=== PATIENT | female | born 1960 | race Caucasian/White ===

== ENCOUNTER 2022-06-05 08:23 | Day surgery (SDC) | payer OTHER, SELFPAY ==
[2022-06-01 15:13] VITALS: BMI 29.0
--- NOTE | 2022-06-04 11:49 | HO.ANESPROP2 ---
Documented by User: Keri Vega NP 06/04/22 11:49 HPI - Anesthesia Eval Consult details Narrative: 62yo F for Colonoscopy [facility] Past Medical History Medical History Anxiety Elevated cholesterol HTN (hypertension) Nephrolithiasis Surgical History Surgical History H/O colonoscopy Hx of appendectomy Hx of cholecystectomy Hx of nasal septoplasty Social History Social History Patient Tobacco Use Status: Former Tobacco user Are you DNR?: No Advance Directives: No Advance Directives Information Provided: Yes Nutrition Risks: No Nutritional Risk Meds Allergies Allergy/AdvReac Type Severity Reaction Status Date / Time metoprolol Allergy Mild Diarrhea Verified 06/05/22 08:40 shellfish derived Allergy Unknown Unknown Verified 06/05/22 08:40 tree nut Allergy Unknown Unknown Verified 06/05/22 08:40 Home Medications Medication Instructions Recorded Confirmed Last Taken Type hydrochlorothiazide 25 mg tablet 25 mg PO DAILY 06/01/22 06/01/22 Unknown History loratadine 10 mg tablet (Claritin) 10 mg PO DAILY 06/01/22 06/01/22 Unknown History lorazepam 0.5 mg tablet 0.5 mg PO BEDTIME PRN Anxiety 06/01/22 06/01/22 Unknown History lisinopril 10 mg tablet 1 tab PO DAILY 06/05/22 06/05/22 06/05/22 History Exam Exam Date and Time: June 04, 2022 1149 Height,Weight and Vital Signs: Height 5 ft 4 in Weight 76.657 kg Assessment and Plan Assessment Anesthesia Assessment: Chart Reviewed Documented by User: Walter Dolan MD 06/14/22 21:20 HPI - Anesthesia Eval Consult details Narrative: 62yo F for Colonoscopy had cardiac workup done for bundle branch block , unremarkable as per patient , asymptomatic , followed up with cardiology PRN . [facility] Past Medical History Medical History Anxiety Elevated cholesterol HTN (hypertension) Nephrolithiasis Functional capacity: independent ambulation Family History Family history of problems with anesthesia: No Surgical History Surgical History H/O colonoscopy Hx of appendectomy Hx of cholecystectomy Hx of nasal septoplasty History of Problems with Anesthesia: No Social History Social History Patient Tobacco Use Status: Former Tobacco user Are you DNR?: No Advance Directives: No Advance Directives Information Provided: Yes Nutrition Risks: No Nutritional Risk Meds Allergies Allergy/AdvReac Type Severity Reaction Status Date / Time metoprolol Allergy Mild Diarrhea Verified 06/05/22 08:40 shellfish derived Allergy Unknown Unknown Verified 06/05/22 08:40 tree nut Allergy Unknown Unknown Verified 06/05/22 08:40 Home Medications Medication Instructions Recorded Confirmed Last Taken Type hydrochlorothiazide 25 mg tablet 25 mg PO DAILY 06/01/22 06/01/22 Unknown History loratadine 10 mg tablet (Claritin) 10 mg PO DAILY 06/01/22 06/01/22 Unknown History lorazepam 0.5 mg tablet 0.5 mg PO BEDTIME PRN Anxiety 06/01/22 06/01/22 Unknown History lisinopril 10 mg tablet 1 tab PO DAILY 06/05/22 06/05/22 06/05/22 History Exam Airway Mallampati Class: III TM Dist: >3cm Neck ROM: Full Loose/Missing/Broken Teeth: Yes (Fillings ) Heart: S1,S2 Lungs: b/l breath sounds Assessment and Plan Assessment Anesthesia Assessment: Anesthesia Plan Discussed Final Anesthetic Review Family History of Problems with Anesthesia: No History of Problems with Anesthesia: No NPO: Yes ASA Class: II Final Preanesthetic Review: Meds/Allgs Chart Reviewed, Consent Obtained/Reviewed and Anes Risks/Benef Reviewed Patient Risk: Intermediate Procedure Risk: Intermediate Anesthetic Plan Anesthetic Plan: MAC: Disposition: Standard PACU
[2022-06-05] MEDS: Lactated Ringers 1,000 ML 100 ML IVCONT (08:47)
[2022-06-05 09:05] VITALS: BP 129/75; PULSE 96; RESP 18; TEMP 36.4; O2SAT 99
--- NOTE | 2022-06-05 09:35 | MHC.SHP ---
Pre-Procedural Eval Section A Date of Service: 06/05/22 Section B Chief Complaint: Other fecal abnormalities Details of Present Illness: See H&P no changes Relevant Family History (Specify if Yes): No Relevant Social History: None Present Medications: see Short Stay Collaborative assessment Medical History: No relevant PMH History of Previous Operations: No relevant previous surgery Allergies: Allergies Allergy/AdvReac Type Severity Reaction Status Date / Time metoprolol Allergy Mild Diarrhea Verified 06/05/22 08:40 shellfish derived Allergy Unknown Unknown Verified 06/05/22 08:40 tree nut Allergy Unknown Unknown Verified 06/05/22 08:40 Review of Systems Sugical H&P ROS: Negative: Constitution, Cardiovascular, Respiratory, Neurological, Psychiatric, Hem-Onc, Allergic/Immunologic, Gastrointestinal, Genitourinary, Musculoskeletal, Integumentary, Endocrine and Eyes/Ears/Nose/Throat Exam Surgical H&P Exam: Normal: HEENT, Normal: Heart, Normal: Lungs, Normal: Extremities, Normal: Abdomen, Normal: Skin and Normal: Neurological Plan Diagnosis/Plan: Unchanged I have reviewed the history and physical and performed a pertinent physical examination on my patient. No changes have occurred unless specified.
--- NOTE | 2022-06-05 09:52 | PC.NURSE ---
dr. shaw reviewed ekg strip and assessed pt for bbb and hx bbb.
--- NOTE | 2022-06-05 10:13 | P.BOP_ITS ---
Brief Operative Note Date of Service: 06/05/22 Pre-op diagnosis: abnl findings in stool Post-op diagnosis: same Surgeon: Chris Galdamez Anesthesia: MAC Was an Digital Data Analyst used for this Procedure?: No Estimated blood loss (mL): 0 Pathology: other Condition: stable Disposition: PACU
[2022-06-05 10:17] VITALS: BP 109/52; PULSE 86; RESP 17; TEMP 36.3; O2SAT 100
[2022-06-05 10:32] VITALS: BP 122/66; PULSE 73; RESP 18; TEMP 36.4; O2SAT 99
--- NOTE | 2022-06-05 21:59 | OP_ITS ---
SURGEON: Chris Galdamez MD INDICATIONS: Abnormal findings in stool. PREOPERATIVE DIAGNOSIS: POSTOPERATIVE DIAGNOSIS: PROCEDURE PERFORMED: Colonoscopy to the terminal ileum with snare polypectomy 06/05/22 ESTIMATED BLOOD LOSS: COMPLICATIONS: ANESTHESIA: ASSISTANTS: SPECIMENS: MEDICATIONS: Monitored anesthesia care. DESCRIPTION OF PROCEDURE: History and physical performed. The risks and benefits of the procedure were explained to the patient. Informed consent was obtained. The patient was placed in a left lateral decubitus position. A digital rectal exam was performed and was found to be normal. The Olympus pediatric video colonoscope was introduced into the rectum and advanced to the cecum without difficulty. The cecum was identified by transillumination, palpation, and identification of ileocecal valve. Examination was performed. The scope was removed. She tolerated the procedure well and was taken to recovery in stable condition. FINDINGS: The terminal ileum was normal. The visualized colonic mucosa was normal. The quality of the prep was good. There was an 8 mm polyp at the proximal transverse colon that was removed with a hot snare and recovered with biopsy forceps. No other polyps were identified. Retroflexed examination showed small internal hemorrhoids. IMPRESSION: Colon polyp. RECOMMENDATION: Follow up the biopsy results. MD GENE Pineda/HERIBERTO / [id number] DEJA
== END 2022-06-05 11:09 | disposition home or self-care (01) ==
PROVIDERS: PCP Pediatrics; Visit Provider Internal Medicine Gastroenterology
PROC: 0DJD8ZZ Inspection of Lower Intestinal Tract, Via Natural or Artificial Opening Endoscopic (ICD-10-PCS; CPT 45378; principal; 2022-06-05 09:30)
DX: R19.5 Other fecal abnormalities (principal); D12.3 Benign neoplasm of transverse colon; K64.8 Other hemorrhoids; F41.1 Generalized anxiety disorder; I10 Essential (primary) hypertension; E78.00 Pure hypercholesterolemia, unspecified; Z79.899 Other long term (current) drug therapy; Z88.8 Allergy status to other drugs, medicaments and biological substances; Z87.891 Personal history of nicotine dependence; Z90.49 Acquired absence of other specified parts of digestive tract
CPT/HCPCS: 45385; 88305

== ENCOUNTER 2023-05-10 14:55 | Outpatient (REF) | payer MEDICARE, SELFPAY ==
[2023-05-10 19:16] LABS: Leukocytes Stool Qualitative NEGATIVE (NEGATIVE)
[2023-05-11 06:48] LABS: CDiff Gene PCR POSITIVE (Negative)
[2023-05-11 09:53] LABS: CDIFF Internal ctrl Dots and bkg OK (V); CDiff Toxin Negative (Negative)
[2023-05-11 13:10] LABS: Adenovirus F 40/41 Not Detected (Not Detect.); Astrovirus Not Detected (Not Detect.); Campylobacter Not Detected (Not Detect.); Cryptosporidium Not Detected (Not Detect.); Cyclospora cayetanensis Not Detected (Not Detect.); E. coli EAEC Not Detected (Not Detect.); E. coli EPEC Not Detected (Not Detect.); E. coli ETEC Not Detected (Not Detect.); E. coli STEC Not Detected (Not Detect.); Entamoeba histolytica Not Detected (Not Detect.); Giardia lamblia Not Detected (Not Detect.); Norovirus GI/GII Not Detected (Not Detect.); Plesiomonas shigelloides Not Detected (Not Detect.); Rotavirus A Not Detected (Not Detect.); Salmonella Not Detected (Not Detect.); Sapovirus Not Detected (Not Detect.); Shigella sp./EIEC Not Detected (Not Detect.); Vibrio Not Detected (Not Detect.); Vibrio Cholerae Not Detected (Not Detect.); Yersinia enterocolitica Not Detected (Not Detect.)
== END 2023-05-10 14:56 | disposition home or self-care (01) ==
LOC: HO.LAB 14:55
PROVIDERS: Visit Provider Internal Medicine Gastroenterology
DX: R19.7 Diarrhea, unspecified (principal)
CPT/HCPCS: 87177; 87209; 87324; 87493; 87507; 89055

== ENCOUNTER 2023-07-07 07:15 | Outpatient (REF) | payer MEDICARE, SELFPAY | END 2023-07-07 07:16 | disposition home or self-care (01) | LOC: HO.LAB 07:15 | PROVIDERS: PCP Pediatrics; Visit Provider Internal Medicine Gastroenterology | DX: Z13.89 Encounter for screening for other disorder (principal) ==

== ENCOUNTER 2023-07-15 10:06 | Outpatient (REF) | payer MEDICARE, SELFPAY ==
[2023-07-15 12:14] LABS: Leukocytes Stool Qualitative NEGATIVE (NEGATIVE)
[2023-07-15 13:17] LABS: Adenovirus F 40/41 Not Detected (Not Detect.); Astrovirus Not Detected (Not Detect.); Campylobacter Not Detected (Not Detect.); Cryptosporidium Not Detected (Not Detect.); Cyclospora cayetanensis Not Detected (Not Detect.); E. coli EAEC Not Detected (Not Detect.); E. coli EPEC Not Detected (Not Detect.); E. coli ETEC Not Detected (Not Detect.); E. coli STEC Not Detected (Not Detect.); Entamoeba histolytica Not Detected (Not Detect.); Giardia lamblia Not Detected (Not Detect.); Norovirus GI/GII Not Detected (Not Detect.); Plesiomonas shigelloides Not Detected (Not Detect.); Rotavirus A Not Detected (Not Detect.); Salmonella Not Detected (Not Detect.); Sapovirus Not Detected (Not Detect.); Shigella sp./EIEC Not Detected (Not Detect.); Vibrio Not Detected (Not Detect.); Vibrio Cholerae Not Detected (Not Detect.); Yersinia enterocolitica Not Detected (Not Detect.)
[2023-07-15 13:55] LABS: CDiff Gene PCR POSITIVE (Negative)
[2023-07-15 14:33] LABS: CDIFF Internal ctrl Dots and bkg OK (V); CDiff Toxin Negative (Negative)
== END 2023-07-15 10:07 | disposition home or self-care (01) ==
LOC: HO.LNP 10:06
PROVIDERS: Visit Provider Internal Medicine Gastroenterology
DX: R19.7 Diarrhea, unspecified (principal)
CPT/HCPCS: 87177; 87209; 87324; 87493; 87507; 89055

== ENCOUNTER 2023-10-22 15:21 | Outpatient (REF) | payer MEDICARE, SELFPAY ==
[2023-10-23 11:36] LABS: CDiff Gene PCR NEGATIVE (Negative)
== END 2023-10-22 15:22 | disposition home or self-care (01) ==
LOC: HO.LAB 15:21
PROVIDERS: PCP Pediatrics; Visit Provider Internal Medicine Gastroenterology
DX: R19.7 Diarrhea, unspecified (principal)
CPT/HCPCS: 87493

== ENCOUNTER 2025-01-12 15:32 | Outpatient (REF) | payer MEDICARE, SELFPAY ==
--- OUTSIDE RECORDS SUMMARY | 2025-01-12 15:35 | XMS_ITS ---
Author Organization [facility] Address [address] [place] [phone] Care Team Providers Care Meat Cutter Apprentice Name Role Phone Lizeth GARCIA, Lopez Primary Care Provider Unavail able Chris Galdamez Jr [phone] REASON FOR VISIT diarrhea Encounters Encounter Location Date Provider Diagnosis [facility] [address] [place] [phone] 01/08/2025 Chris Galdamez Jr Other fecal abnormalities R19.5 Assessments Encounter Date Diagnosis (ICD Code) Assessment Notes Treatment Notes Treatment Clinical Notes Section Notes 01/08/2025 Other fecal abnormalities (ICD-10 - R19.5) 1 Plan Of Treatment Pending Test Test Name Order Date STOOL WBC 01/08/2025 OVA & PARASITES (O&P) 01/08/2025 CDiff Gene PCR 01/08/2025 GI PANEL 01/08/2025 Progress Notes * LEONARDO HOWELL ADOB: [birth year] (64 yo F)Acc No.[id number]:01/08/2025 Patient:?WINTER HOWELLUREEN Anup :1960???Age:64 Y???Sex:Female Address:[address] [place] [address] Subjective: * Chief Complaints: * ???Diarrhea * Medical History:? * Surgical History:? * Hospitalization/Major Diagno stic Procedure:? * Medications:? Objective: * Vitals:? * Physical Examination:? Assessment: * Assessment: 1.?Other fecal abnormalities - R19.5 (Primary)??? 1 Plan: * Treatment: * Procedure Codes:? * true * Date:? Generated for Carlos guerrier/Ian/Regina on:?01/12/2025 03:35 PM EDT
--- OUTSIDE RECORDS SUMMARY | 2025-01-12 15:35 | XMS_ITS | Patient Health Record ---
Author Organization [facility] Address [address] [place] [address] Care Team Providers Care Applied Statistician Name Role Phone Lizeth GARCIA, Lopez Primary Care Provider Unavail able Chris Galdamez Jr Unavailable Allergies Allergen (clinical drug ingredient) Drug/Non Drug Allergy documented on EMR Reaction Allergy Type Onset Date Status metoprolol Metoprolol Unknown Drug Allergy Activ e Tree Nuts Unknown Allergy Active Shellfish (FN) Shellfish-derived Products Unknown Drug Allergy Active Reason For Referral No Information Medications Medication SIG (Take, Route, Frequency, Duration) Notes Start Date End Date Status Pepcid 20 MG 1 tablet at bedtime as needed Orally Once a day for 30 day(s) Not-Taking Lisinopril 10 MG Oral for 90 A ctive Claritin 10 MG 1 tablet Orally Once a day for 30 day(s) as needed Active hydroCHLOROthiazide 25 MG TAKE 1 TABLET BY MOUTH EVERY DAY Diagnosis Unavailable Oral for 90 Active LORazepam 0.5 MG TAKE 1 TABLET BY MOUTH EVERY DAY NEEDED Oral for 15 as needed Active Immunizations Vaccine Route Administration Date Status Comme nts Influenza Unknown 06/04/2021 Administered Influenza Unknown 07/27/2023 Administered Social History Tobacco Use: Social History Observation Description Date Details (start date - stop date) Never Smoker NA - NA Tobacco Use/Smoking Question Answer Notes Patient is a nonsmoker Alcohol Screen Question Answer Notes Did you have a drink contain ing alcohol in the past year? Yes How often did you have a dri nk containing alcohol in the past year? Monthly or less (1 point) How many drinks did you have on a typical day when you were drinking in the past year? 1 or 2 drinks (0 point) How often did you have 6 or more drinks on one occasion in the past year? Never (0 point) Points 1 Interpretation Negative Problems Problem Type SNOMED Code ICD Code Onset Dates Problem Status W/U Status Risk Notes Problem 736825282 Abnormal findings in stool (R19.5) Active confirmed Problem 09712108 Irritable bowel syndrome, unspecified type (K58.9) Active confirmed Encounters Encounter Location Date Provider Diagnosis [facility] [address] [place] [phone] 12/15/2024 Chris Galdamez Jr [facility] [address] [place] [phone] 01/08/2025 Chris Galdamez Jr Other fecal abnormalities R19.5 Assessments Encounter Date Diagnosis (ICD Code) Assessment Notes Treatment Notes Treatment Clinical Notes Section Notes 01/08/2025 Other fecal abnormalities (ICD-10 - R19.5) 1 Plan Of Treatment Pending Test Test Name Order Date STOOL WBC 07/06/2023 STOOL WBC 01/08/2025 STOOL WBC 05/03/2023 OVA & PARASITES (O&P) 07/06/2023 OVA & PARASITES (O&P) 01/08/2025 OVA & PARASITES (O&P) 05/03/2023 TSH REFLEX FREE T4 12/22/2023 C DIFFICILE RFLX PCR 05/03/2023 C DIFFICILE RFLX PCR 07/06/2023 CDiff with Reflex to PCR 10/22/2023 CDiff Gene PCR 01/08/2025 GI PANEL 01/08/2025 GI PANEL 07/06/2023 Future Test Test Name Order Date COLONOSCOPY 04/16/2022 Insurance Providers Payer Name Payer Address Payer Phone Subscriber Number Group Number Insured Name Patient Relationship to Insured Coverage Start Date Coverage End Date MEDICARE OF [place] [address] [facility] [place] [address] [phone] [id number] TAMMYVALLEONARDO Self - patient is the insured [employer] ATT[employer] CLAIMS [address] [place] [phone] [id number] WINTER HOWELLUREEN Self - patient is the insured Medical (General) History Medical History History ICD Code Anxiety Nephrolithiasis Hypertension Hyperlipidemia C. difficile infection Colonoscopy 06/25, tubular adenoma, seven -year recall. Surgical History Surgery Date(Month/Year) cholecystectomy appendectomy deviated septum repair
--- OUTSIDE RECORDS SUMMARY | 2025-01-12 15:36 | XMS_ITS | Data Portability ---
Author Organization [facility], Main Office Address [address] [facility] [address] [place] [id number] Care Team Providers Care Recreation Director Name Role Phone LOPEZ ARCE Primary Care Provider [phone] LOPEZ BARRIOS Door To Door Fundraising Collector CHIP ANDERSON Services Executive [facility] Medical Assistant Internal Medicine DYAN KENT JR Public Information Coordinator [facility] Shoe Repairer Apprentice Assessment Encounter Date Assessment Date Assessment LastModified by Organization Details LastModified Time 08/09/2024 08/09/2024 Discussed with patient the signs/symptom s warranted for a return to office visit and/or an ER visit. Patient understood and agreed with the plan. [email or web address] Not available 08/09/2024 11:04:13 Plan of Treatment Reminders Order Date Submit Date Provider Last Modified By Organization Details Last Modified Time Details Appointments None record ed. Lab lipid panel, serum 2024 025 SAM [facility] (Centralized Electronic Ordering - All Locations), Patient Can Go To The Location Of Their Choice, [id number] 5 10:11:00 CBC w/ auto diff 2024 025 SAM [facility] (Centralized Electronic Ordering - All Locations), Patient Can Go To The Location Of Their Choice, [id number] 5 10:11:00 urinal ysis, comple te 2024 025 SAM [facility] (Centralized Electronic Ordering - All Locations), Patient Can Go To The Location Of Their Choice, 5 10:10:59 CMP, serum or plasma 2024 025 SAM [facility] (Centralized Electronic Ordering - All Locations), Patient Can Go To The Location Of Their Choice, [id number] 5 10:11:00 lipid panel, serum 2022 024 [email or web address] [facility], [address], [address], [place], [address], 4 11:58:27 CMP, serum or plasma 2022 024 [email or web address] [facility], [address], [address], [place], [address], 4 11:58:27 BMP, serum or plasma 2022 023 [email or web address] [facility], [address], [address], [place], [address], 3 06:55:30 urinal ysis, comple te 2022 023 [email or web address] [facility], [address], [address], [place], [address], 3 06:55:30 Referral nutrit ionist /dieti marina referr al 2024 025 Not available 5 10:32:56 pelvic floor therap y referr al - cystoc jazmin 2023 024 [email or web address] [facility], [address], [place], [address], 4 11:23:39 urolog ist referr al - cystoc jazminsandra sympto ms of increa se urinat ion 2023 024 [facility], [address] [place], [address], 4 14:14:44 nutrit ionist /dieti marina referr al 2023 024 [email or web address] Not available 4 11:17:10 Procedures None record ed. Surgeries None record ed. Imaging bone densit y 2024 025 [email or web address] [facility], [address] [place], [address], 5 10:16:21 MAMMO, screen ing, bilate ral - Perfor m Diagno stic Mammog ben and Breast Ultras ound if needed / Perfor m Ultras ound Guided Aspira tion and/or Breast Biopsy if ligia simmons 2024 025 [email or web address] In-Office Order, Internal Use Only DO Not Attach Compendium DO Not Attach Compendium, Do Not Delete/merge, [id number] 5 10:16:22 XR, knee, 3 view - asses arthri tic burden 2023 024 [email or web address] [facility], [address] [place], [address], 4 09:42:12 bone densit y 2023 024 [email or web address] In-Office Order, Internal Use Only DO Not Attach Compendium DO Not Attach Compendium, Do Not Delete/merge, [id number] 4 09:10:55 MAMMO, screen ing, bilate ral - Perfor m Diagno stic Mammog ben and Breast Ultras ound if needed / Perfor m Ultras ound Guided Aspira tion and/or Breast Biopsy if ligia simmons 2023 024 [email or web address] In-Office Order, Internal Use Only DO Not Attach Compendium DO Not Attach Compendium, Do Not Delete/merge, [id number] 4 10:37:38 Medication Orders lisino pril 10 mg tablet 2023 024 [id number], [address] [place] [address], [place], [id number], 4 11:31:57 hydroc hlorot hiazid e 25 mg tablet 2023 024 [facility] #[id number], [address] [place] [address], [place], [id number], 4 11:32:04 lisino pril 10 mg tablet 2022 023 [facility] #[id number], [address] [place] [address], [place], [id number], 3 09:46:26 hydroc hlorot hiazid e 25 mg tablet 2022 023 [facility] #[id number], [address] [place] [address], [place], [id number], 3 09:46:25 Patient TargetsNo targets recorded. Patient Instructions Encounter Date Encounter Id Patient Instructions Last Modified By Organization Details Last Modified Time 06/29/2023 [id number] anxiety disorder : care instructions [email or web address] Not available 06/29/2023 09:46:17 high blood press ure: care instructions [email or web address] Not available 06/29/2023 09:46:17 learning about h igh blood pressure awychowski Not available 06/29/2023 09:46:17 12/30/2023 [id number] high cholesterol : care instructions [email or web address] Not available 12/30/2023 10:32:52 preventing falls : care instructions awychowski Not available 12/30/2023 10:32:52 well visit, over 65: care instructions [email or web address] Not available 12/30/2023 10:32:52 colon polyps: ca re instructions [email or web address] Not available 12/30/2023 10:32:52 When You Want to Lose Weight: Care Instructions [email or web address] Not available 12/30/2023 10:32:52 Nutrition Referr al and Weight Management Follow-up Information [email or web address] Not available 12/30/2023 10:32:52 06/12/2024 [id number] back care and preventing injuries: care instructions [email or web address] Not available 06/12/2024 10:54:38 getting back to normal after low back pain: care instructions [email or web address] Not available 06/12/2024 10:54:38 learning about relief for back pain awychowski Not available 06/12/2024 10:54:38 high blood press ure: care instructions awychowski Not available 06/12/2024 10:54:38 learning about h igh blood pressure awychowski Not available 06/12/2024 10:54:38 01/01/2025 [id number] high cholesterol : care instructions [email or web address] Not available 01/01/2025 10:10:47 gastroesophageal reflux disease (GERD): care instructions awychowski Not available 01/01/2025 10:10:47 preventing falls : care instructions awychowski Not available 01/01/2025 10:10:47 well visit, over 65: care instructions [email or web address] Not available 01/01/2025 10:10:47 colon polyps: ca re instructions awychowski Not available 01/01/2025 10:10:47 When You Want to Lose Weight: Care Instructions [email or web address] Not available 01/01/2025 10:10:47 Nutrition Referr al and Weight Management Follow-up Information [email or web address] Not available 01/01/2025 10:10:47 Reason for Referral Daycare Director/dietitian Refer ral for Body mass index 25-29 - overweight Referring Physician: Lopez Arce [facility], Encounter Date: 12/30/2023 Pelvic Floor Therapy Referra l for Cystocele cystocele Referring Physician: Cristina Urbano [facility], Encounter Date: 08/09/2024 Urologist Referral for Cysto rae cystocele, bladder symptoms of increase urination Referring Physician: Cristina Urbano [facility], Encounter Date: 08/09/2024 Daycare Director/dietitian Refer ral for Body mass index 25-29 - overweight Referring Physician: Lopez Arce [facility] Barbara, Encounter Date: 01/01/2025 Results Created Date Observation Date Name Description Value Unit Range Abnormal Flag Note LastModifiedBy Organization Detail LastModifiedTime 06/29/2006/29/2023 COMPR EHENS CAROLYN METAB OLIC PANL glucose 96 mg/dL (70-99 ) Not Available [facility] (Centralized Electronic Ordering - All Locations) Patient Can Go To The Location Of Their Choice, 06/29/2023 16:03:37 06/29/2006/29/2023 COMPR EHENS CAROLYN METAB OLIC PANL BUN 14 mg/dL (8-23) Not Available [facility] (Centralized Electronic Ordering - All Locations) Patient Can Go To The Location Of Their Choice, 06/29/2023 16:03:37 06/29/2006/29/2023 COMPR EHENS CAROLYN METAB OLIC PANL creatinine 0.8 mg/dL (0.5-1 .0) Not Available [facility] (Centralized Electronic Ordering - All Locations) Patient Can Go To The Location Of Their Choice, 06/29/2023 16:03:37 06/29/2006/29/2023 COMPR EHENS CAROLYN METAB OLIC PANL sodium 140 mmol/ L (133-1 45) Not Available [facility] (Centralized Electronic Ordering - All Locations) Patient Can Go To The Location Of Their Choice, 06/29/2023 16:03:37 06/29/2006/29/2023 COMPR EHENS CAROLYN METAB OLIC PANL potassium 4.2 mmol/ L (3.6-5 .2) Not Available [facility] (Centralized Electronic Ordering - All Locations) Patient Can Go To The Location Of Their Choice, 06/29/2023 16:03:37 06/29/2006/29/2023 COMPR EHENS CAROLYN METAB OLIC PANL chloride 103 mmol/ L (98-10 7) Not Available [facility] (Centralized Electronic Ordering - All Locations) Patient Can Go To The Location Of Their Choice, 06/29/2023 16:03:37 06/29/2006/29/2023 COMPR EHENS CAROLYN METAB OLIC PANL bicarbonate 26 mmol/ L (22-29 ) Not Available [facility] (Centralized Electronic Ordering - All Locations) Patient Can Go To The Location Of Their Choice, 06/29/2023 16:03:37 06/29/2006/29/2023 COMPR EHENS CAROLYN METAB OLIC PANL anion gap 11 (4-17) Not Available [facility] (Centralized Electronic Ordering - All Locations) Patient Can Go To The Location Of Their Choice, 06/29/2023 16:03:37 06/29/2006/29/2023 COMPR EHENS CAROLYN METAB OLIC PANL albumin 4.5 gm/dL (3.4-4 .8) Not Available [facility] (Centralized Electronic Ordering - All Locations) Patient Can Go To The Location Of Their Choice, 06/29/2023 16:03:37 06/29/20 23 06/29/2023 COMPR EHENS CAROLYN METAB OLIC PANL calcium 9.8 mg/dL (8.6-1 0.5) Not Available [facility] (Centralized Electronic Ordering - All Locations) Patient Can Go To The Location Of Their Choice, 06/29/2023 16:03:37 06/29/20 23 06/29/2023 COMPR EHENS CAROLYN METAB OLIC PANL bilirubin,to norah 0.6 mg/dL (0-1.2 ) Not Available [facility] (Centralized Electronic Ordering - All Locations) Patient Can Go To The Location Of Their Choice, 06/29/2023 16:03:37 06/29/20 23 06/29/2023 COMPR EHENS CAROLYN METAB OLIC PANL total protein 7.1 gm/dL (6.2-8 .2) Not Available [facility] (Centralized Electronic Ordering - All Locations) Patient Can Go To The Location Of Their Choice, 06/29/2023 16:03:37 06/29/20 23 06/29/2023 COMPR EHENS CAROLYN METAB OLIC PANL Ag ratio 1.7 Not Available [facility] (Centralized Electronic Ordering - All Locations) Patient Can Go To The Location Of Their Choice, 06/29/2023 16:03:37 06/29/20 23 06/29/2023 COMPR EHENS CAROLYN METAB OLIC PANL AST 25 U/L (0-32) Not Available [facility] ([facility]ized Electronic Ordering - All Locations) Patient Can Go To The Location Of Their Choice, 06/29/2023 16:03:37 06/29/20 23 06/29/2023 COMPR EHENS CAROLYN METAB OLIC PANL alk phos 79 U/L (35-10 4) Not Available [facility] ([facility]ized Electronic Ordering - All Locations) Patient Can Go To The Location Of Their Choice, 06/29/2023 16:03:37 06/29/2006/29/2023 COMPR EHENS CAROLYN METAB OLIC PANL ALT 19 U/L (0-33) Not Available [facility] (Centralized Electronic Ordering - All Locations) Patient Can Go To The Location Of Their Choice, 06/29/2023 16:03:37 06/29/2006/29/2023 COMPR EHENS CAROLYN METAB OLIC PANL estimated GFR creatinine 78 mL/mi n/1.7 3_M2 Creat inine based estim ated glome rular filtr ation (eGFR ) in adult s is calcu lated using the Natio nal Kidne y Found ation recom yancy d 2020 CKD-E PI equat ion. Estim ates GFR from serum creat inine , age and sex. Not Available [facility] (Centralized Electronic Ordering - All Locations) Patient Can Go To The Location Of Their Choice, 06/29/2023 16:03:37 06/29/2006/29/2023 LAB ONLY URINA LYSIS appear/color LIGHT YELLO W CLEAR Not Available [facility] (Centralized Electronic Ordering - All Locations) Patient Can Go To The Location Of Their Choice, 06/29/2023 16:41:29 06/29/2006/29/2023 LAB ONLY URINA LYSIS sp. gravity 1.022 (1.002 -1.030 ) Not Available [facility] (Centralized Electronic Ordering - All Locations) Patient Can Go To The Location Of Their Choice, 06/29/2023 16:41:29 06/29/2006/29/2023 LAB ONLY URINA LYSIS urine pH 5.5 (5.0-8 .0) Not Available [facility] (Centralized Electronic Ordering - All Locations) Patient Can Go To The Location Of Their Choice, 06/29/2023 16:41:29 06/29/2006/29/2023 LAB ONLY URINA LYSIS urine albumin NEGATI VE (neg) Not Available [facility] (Centralized Electronic Ordering - All Locations) Patient Can Go To The Location Of Their Choice, 06/29/2023 16:41:29 06/29/20 23 06/29/2023 LAB ONLY URINA LYSIS urine glucose NEGATI VE (neg) Not Available [facility] ([facility]ized Electronic Ordering - All Locations) Patient Can Go To The Location Of Their Choice, 06/29/2023 16:41:29 06/29/2006/29/2023 LAB ONLY URINA LYSIS urine ketones NEGATI VE (neg) Not Available [facility] ([facility]ized Electronic Ordering - All Locations) Patient Can Go To The Location Of Their Choice, 06/29/2023 16:41:29 06/29/2006/29/2023 LAB ONLY URINA LYSIS urine bilirubin NEGATI VE (neg) Not Available [facility] ([facility]ized [facility] Ordering - All Locations) Patient Can Go To The Location Of Their Choice, 06/29/2023 16:41:29 06/29/2006/29/2023 LAB ONLY URINA LYSIS urine hemoglobin NEGATI VE (neg) Not Available [facility] ([facility]ized Electronic Ordering - All Locations) Patient Can Go To The Location Of Their Choice, 06/29/2023 16:41:29 06/29/2006/29/2023 LAB ONLY URINA LYSIS urine nitrite NEGATI VE (neg) Not Available [facility] (Centralized Electronic Ordering - All Locations) Patient Can Go To The Location Of Their Choice, 06/29/2023 16:41:29 06/29/2006/29/2023 LAB ONLY URINA LYSIS urine leukocyte NEGATI VE (neg) Not Available [facility] ([facility]ized Electronic Ordering - All Locations) Patient Can Go To The Location Of Their Choice, 06/29/2023 16:41:29 06/29/2006/29/2023 LAB ONLY URINA LYSIS urobilinogen NORMAL mg/dL (norm) Not Available [facility] ([facility] - [facility] Locations) Patient Can Go To The Location Of Their Choice, 06/29/2023 16:41:29 06/29/2006/29/2023 LAB ONLY URINA LYSIS urine WBCs 1 /hpf (0-5) Not Available [facility] ([facility] Electronic Ordering - All Locations) Patient Can Go To The Location Of Their Choice, 06/29/2023 16:41:29 06/29/2006/29/2023 LAB ONLY URINA LYSIS urine RBCs <1 /hpf (0-3) Not Available [facility] ([facility] Ordering - All Locations) Patient Can Go To The Location Of Their Choice, [id number] 06/29/2023 16:41:29 06/29/20 23 06/29/2023 LAB ONLY URINA LYSIS mucus SLIGHT /lpf Not Available [facility] ([facility] Electronic Ordering - All Locations) Patient Can Go To The Location Of Their Choice, [id number] 06/29/2023 16:41:29 06/29/20 23 06/29/2023 LAB ONLY URINA LYSIS squamous epith <1 /hpf (0-8) Not Available [facility] ([facility] Order[facility] - All Locations) Patient Can Go To The Location Of Their Choice, [id number] 06/29/2023 16:41:29 06/29/20 23 06/29/2023 LAB ONLY URINA LYSIS hyaline cast 2 lpf (0-2) Not Available [facility] ([facility] Order[facility] - All Locations) Patient Can Go To The Location Of Their Choice, [facility] 06/29/2023 16:41:29 02/03/20 24 02/04/2024 COMP. METAB OLIC PANEL (14) glucose 91 mg/dL 70-99 Not Available [facility] ([facility] [address] [place], [address], 02/04/2024 06:08:17 02/03/20 24 02/04/2024 COMP. METAB OLIC PANEL (14) BUN 21 mg/dL 8-27 Not Available [facility] ([facility] [address] [place], [address], 02/04/2024 06:08:17 02/03/2002/04/2024 COMP. METAB OLIC PANEL (14) creatinine 0.88 mg/dL 0.57-1 .00 Not Available [facility] ([facility] [address] [place], [address], 02/04/2024 06:08:17 02/03/20 24 02/04/2024 COMP. METAB OLIC PANEL (14) eGFR 73 mL/mi n/1.7 3 >59 Not Available [facility] ([facility] [address] [facility] [place], [address], 02/04/2024 06:08:17 02/03/20 24 02/04/2024 COMP. METAB OLIC PANEL (14) BUN/creatini ne ratio 24 12-28 Not Available [facility] [address] [facility] [place], [address], 02/04/2024 06:08:17 02/03/20 24 02/04/2024 COMP. METAB OLIC PANEL (14) sodium 142 mmol/ L 134-14 4 Not Available [facility] ([facility] [address] [facility], [place], [address], 02/04/2024 06:08:17 02/03/20 24 02/04/2024 COMP. METAB OLIC PANEL (14) potassium 4.3 mmol/ L 3.5-5. 2 Not Available [facility] ([facility]) [address] [facility], [place], [address], 02/04/2024 06:08:17 02/03/20 24 02/04/2024 COMP. METAB OLIC PANEL (14) chloride 104 mmol/ L 96-106 Not Available [facility] ([facility]) [address] [facility] [place], [address], 02/04/2024 06:08:17 02/03/20 24 02/04/2024 COMP. METAB OLIC PANEL (14) carbon dioxide, total 24 mmol/ L 20-29 Not Available [facility] ([facility]) [address] [facility] [place], [address], 02/04/2024 06:08:17 02/03/20 24 02/04/2024 COMP. METAB OLIC PANEL (14) calcium 9.7 mg/dL 8.7-10 .3 Not Available [facility] ([facility] [address] [place], [address], 02/04/2024 06:08:17 02/03/20 24 02/04/2024 COMP. METAB OLIC PANEL (14) protein, total 6.9 g/dL 6.0-8. 5 Not Available [facility] ([facility] [address] [place], [address], 02/04/2024 06:08:17 02/03/20 24 02/04/2024 COMP. METAB OLIC PANEL (14) albumin 4.4 g/dL 3.9-4. 9 Not Available [facility] [address] [place], [address], 02/04/2024 06:08:17 02/03/20 24 02/04/2024 COMP. METAB OLIC PANEL (14) globulin, total 2.5 g/dL 1.5-4. 5 Not Available [facility] ([facility] [address], [place], [address], 02/04/2024 06:08:17 02/03/20 24 02/04/2024 COMP. METAB OLIC PANEL (14) A/G ratio 1.8 1.2-2. 2 Not Available [facility] ([facility] [address] [place], [address], 02/04/2024 06:08:17 02/03/20 24 02/04/2024 COMP. METAB OLIC PANEL (14) bilirubin, total 0.3 mg/dL 0.0-1. 2 Not Available [facility] [address] [place], [address], 02/04/2024 06:08:17 02/03/20 24 02/04/2024 COMP. METAB OLIC PANEL (14) alkaline phosphatase 78 IU/L 44-121 Not Available [facility] [address] [place], [address], 02/04/2024 06:08:17 02/03/20 24 02/04/2024 COMP. METAB OLIC PANEL (14) AST (SGOT) 20 IU/L 0-40 Not Available [facility] [address] [facility], [place], [address], 02/04/2024 06:08:17 02/03/20 24 02/04/2024 COMP. METAB OLIC PANEL (14) ALT (SGPT) 14 IU/L 0-32 Not Available [facility] [address] [facility], [place], [address], 02/04/2024 06:08:17 02/03/20 24 02/04/2024 URINA LYSIS , COMPL ETE specific gravity >=1.03 0 1.005- 1.030 abnormal Not Available [facility] [address] [facility], [place], [address], 02/04/2024 06:08:18 02/03/20 24 02/04/2024 URINA LYSIS , COMPL ETE pH 5.5 5.0-7. 5 Not Available [facility] [address] [facility], [place], [address], 02/04/2024 06:08:18 02/03/20 24 02/04/2024 URINA LYSIS , COMPL ETE urine-color YELLOW yellow Not Available [facility] [address] [facility], [place], [address], 02/04/2024 06:08:18 02/03/20 24 02/04/2024 URINA LYSIS , COMPL ETE appearance CLEAR clear Not Available [facility] [address] [place], [address], 02/04/2024 06:08:18 02/03/20 24 02/04/2024 URINA LYSIS , COMPL ETE WBC esterase 1+ negati ve abnormal Not Available [facility] [address] [place], [address], 02/04/2024 06:08:18 02/03/20 24 02/04/2024 URINA LYSIS , COMPL ETE protein TRACE negati ve/tra ce Not Available [facility] [address] [place], [address], 02/04/2024 06:08:18 02/03/20 24 02/04/2024 URINA LYSIS , COMPL ETE glucose NEGATI VE negati ve Not Available [facility] [address] [place], [address], 02/04/2024 06:08:18 02/03/20 24 02/04/2024 URINA LYSIS , COMPL ETE ketones NEGATI VE negati ve Not Available [facility] [address] [place], [address], 02/04/2024 06:08:18 02/03/20 24 02/04/2024 URINA LYSIS , COMPL ETE occult blood NEGATI VE negati ve Not Available [facility] [address] [place], [address], 02/04/2024 06:08:18 02/03/20 24 02/04/2024 URINA LYSIS , COMPL ETE bilirubin NEGATI VE negati ve Not Available [facility] [address] [place], [address], 02/04/2024 06:08:18 02/03/20 24 02/04/2024 URINA LYSIS , COMPL ETE urobilinogen ,semi-qn 1.0 mg/dL 0.2-1. 0 Not Available [facility] ([facility] [address] [place], [address], 02/04/2024 06:08:18 02/03/20 24 02/04/2024 URINA LYSIS , COMPL ETE nitrite, urine NEGATI VE negati ve Not Available [facility] [address] [place], [address], 02/04/2024 06:08:18 02/03/20 24 02/04/2024 URINA LYSIS , COMPL ETE microscopic examination SEE BELOW: Micro scopi c was indic ated and was perfo rmed. Not Available [facility] [address] [facility], [place], [address], 02/04/2024 06:08:18 02/03/20 24 02/04/2024 URINA LYSIS , COMPL ETE WBC 6-10 /hpf 0 - 5 abnormal Not Available [facility] [address] [facility], [place], [address], 02/04/2024 06:08:18 02/03/20 24 02/04/2024 URINA LYSIS , COMPL ETE RBC NONE SEEN /hpf 0 - 2 Not Available [facility] [address] [facility], [place], [address], 02/04/2024 06:08:18 02/03/20 24 02/04/2024 URINA LYSIS , COMPL ETE epithelial cells (non renal) 0-10 /hpf 0 - 10 Not Available [facility] [address] [facility], [place], [address], 02/04/2024 06:08:18 02/03/20 24 02/04/2024 URINA LYSIS , COMPL ETE epithelial cells (renal) [employer] Not Available [facility] [address] [facility], [place], [address], 02/04/2024 06:08:18 02/03/20 24 02/04/2024 URINA LYSIS , COMPL ETE casts NONE SEEN /lpf none seen Not Available [facility] [address] [facility], [place], [address], 02/04/2024 06:08:18 02/03/20 24 02/04/2024 URINA LYSIS , COMPL ETE cast type [employer] Not Available [facility] [address] [facility], [place], [address], 02/04/2024 06:08:18 02/03/20 24 02/04/2024 URINA LYSIS , COMPL ETE crystals [employer] Not Available [facility] [address] [facility], [place], [address], 02/04/2024 06:08:18 02/03/20 24 02/04/2024 URINA LYSIS , COMPL ETE crystal type [employer] Not Available [facility] [address] [facility], [place], [address], 02/04/2024 06:08:18 02/03/20 24 02/04/2024 URINA LYSIS , COMPL ETE mucus threads [employer] Not Available [facility] [address] [facility], [place], [address], 02/04/2024 06:08:18 02/03/20 24 02/04/2024 URINA LYSIS , COMPL ETE bacteria NONE SEEN none seen/f ew Not Available [facility] [address] [facility], [place], [address], 02/04/2024 06:08:18 02/03/20 24 02/04/2024 URINA LYSIS , COMPL ETE yeast [employer] Not Available [facility] [address] [facility] [place], [address], 02/04/2024 06:08:18 02/03/20 24 02/04/2024 URINA LYSIS , COMPL ETE trichomonas [employer] Not Available [facility] [address] [facility], [place], [address], 02/04/2024 06:08:18 02/03/20 24 02/04/2024 URINA LYSIS , COMPL ETE comment [employer] Not Available [facility] [address] [facility] [place] [place], [address], 02/04/2024 06:08:18 02/03/20 24 02/04/2024 URINA LYSIS , COMPL ETE microscopic examination [employer] Not Available [facility] [address] [facility] [place], [address], 02/04/2024 06:08:18 02/03/20 24 02/04/2024 LIPID PANEL cholesterol, total 237 mg/dL 100-19 9 above high normal Not Available [facility] [address] [facility] [place], [address], 02/04/2024 06:08:19 02/03/20 24 02/04/2024 LIPID PANEL triglyceride s 79 mg/dL 0-149 Not Available [facility] [address] [facility] [place], [address], 02/04/2024 06:08:19 02/03/20 24 02/04/2024 LIPID PANEL HDL cholesterol 68 mg/dL >39 Not Available [facility] [address] [facility] [place], [address], 02/04/2024 06:08:19 02/03/20 24 02/04/2024 LIPID PANEL VLDL cholesterol taryn 14 mg/dL 5-40 Not Available [facility] [address] [facility] [place], [address], 02/04/2024 06:08:19 02/03/20 24 02/04/2024 LIPID PANEL LDL chol calc ([facility]) 155 mg/dL 0-99 above high normal Not Available [facility] [address] [facility] [place], [address], 02/04/2024 06:08:19 02/03/20 24 02/04/2024 LIPID PANEL comment: [employer] Not Available [facility]) [address] [facility], [place], [address], 02/04/2024 06:08:19 Result Notes None recorded. Problems Name Problem SNOMED Code Status Onset Date Resolution Date Notes Provider Name and Address Organization Details Recorded Time Allergic rhinitis 37986043 Completed 201204/17/2014 RECORDED 11/01/19 13 1:51AM BY MARIOLA GARCIA MA, ANNOTATI ON/ADDEN DUM Lopez Arce MD [address], [place], [address], [facility] 6 15:30:21 Adult health examinat ion Completed 201104/17/2014 RECORDED 07/22/20 12 9:26AM BY MARIOLA GARCIA MA, CHUYATI ON/ADDEN DUM Ally Roque [facility] [address], [place], [address], [facility] 6 10:06:59 Patient status finding [id number] Completed 201204/17/2014 RECORDED 05/31/20 13 12:56PM BY MARSHA BRADLEY MA, ASHLEY ON/ADDEN WILMA Roque [facility] [address] [facility] [address], [place], [address], [facility] 6 10:06:59 Screenin g for malignan t neoplasm of breast Completed 201104/17/2014 RECORDED 07/22/20 12 9:26AM BY MARIOLA GARCIA MA, ANNOTATI ON/ADDEN DUM Ally Roque, [facility] [address] [facility] [address], [place], [address], [facility] 6 10:06:59 [place] [id number] Completed 201204/17/2014 IMPRESSI ON: PERSISTE NT, WILL FU WITH OPTHALMO LOGIST, PT TO MAKE APPT.; RECORDED 12/29/19 13 1:35PM BY MARSHA BRADLEY MA, CHUYATI ON/BRANDON Roque, [facility] [address] [facility] [address], [facility] [place], [address], [facility] 6 10:06:59 Conjunct ivitis [id number] Completed 201204/17/2014 RECORDED 12/29/19 13 1:35PM BY MARSHA BRADLEY MA, ASHLEY ON/BRANDON Roque, [facility] [address] [facility] [address], [place], [address], [facility] 6 10:06:59 Cough [id number] Completed 201204/17/2014 IMPRESSI ON: VIRAL LIKELY. PERTUSSI S CONSIDER ED SINCE HAS COUGH IN FITS, NO HX TDAP, AND COUGH STARTED AFTER HEAD COLD. LONG DISCUSSI ON ON DOING PCR TEST, ABX EFFICACY , COURSE AND CONTAGIO SNESS PERTUSSI S, ETC. RAÚL WAS UNSURE ABOUT WHAT TO DO AND DECIDED TO NOT DO PCR TEST, DO ABX, AND STAY OUT OF WORK UNTIL WED. AVOID INFANTS; RECORDED 12/29/19 13 1:35PM BY MARSHA BRADLEY MA, CHUYATI ON/BRANDON Roque, [facility] [address] [facility] [address], [place], [address], [facility] 6 10:06:59 Indigest ion [id number] Completed 201309/02/2016 IMPRESSI ON: WELL CONTROLL ED WITHOUT WARNING SIGNS. CONTINUE PPI FOR NOW.; RECORDED 11/01/19 14 10:57AM BY MARSHA BRADLEY MA, OFFICE VISIT Lopez Arce MD [address] [facility] [address], [place], [address], [facility] 6 15:28:49 Dysuria [id number] Completed 201308/17/2014 IMPRESSI ON: MOST LIKELY UTI. WILL TREAT EMPIRICA LLY AND ADJUST COVERAGE IF CULTURE SHOWS RESISTAN T ORGANISM . IF CULTURE NEGATIVE OR SX'S WORSEN/P ERSIST WILL NEED FURTHER EVAL.; RECORDED 11/01/19 14 11:42AM BY LOPEZ Cazares MD, OFFICE VISIT Ally Roque, [facility] [address] [address], [facility] [place], [address], [facility] 6 10:06:59 Influenz a vaccine needed [id number] 06 Completed 201204/17/2014 RECORDED 12/29/19 13 1:35PM BY MARSHA BRADLEY MA, CHUYATI ON/ADDEN DUM Ally Roque [facility] [address] [address], [place], [address], [facility] 6 10:06:59 Speciali zed medical examinat ion Completed 201204/17/2014 IMPRESSI ON: IF NL WILL DEFER REPEAT SCREENIN G FOR 3-5 YEARS.; RECORDED 09/25/20 13 1:07PM BY MARSHA BRADLEY MA, ASHLEY ON/ADDEN DUM Ally Roque, [facility] [address] [address], [place], [address], [facility] 6 10:06:59 Microsco pic hematuri a [id number] Completed 201204/17/2014 IMPRESSI ON: WILL REASSESS AND CONSIDER IMAGING IF PERSISTA NT/WORSE .; RECORDED 09/25/20 13 1:07PM BY MARSHA BRADLEY MA, CHUYATI ON/ADDOLAF Roque [facility] [address] [address], [facility] [place], [address], [facility] 6 10:06:59 Pure hypercho lesterol emia [id number] Active 2013 Lopez Arce MD [address] [address], [facility] [place], [address], [facility] 8 16:28:49 Essentia l hyperten nicole 23323789 Active 2012 Marsha Bradley MA null, [facility] 7 14:59:59 Essentia l hyperten nicole [id number] Completed 201204/17/2014 IMPRESSI ON: WEL CONTROLL ED AND REGIMEN WELL TOLERATE D. WILL CONTINUE .; RECORDED 05/31/20 13 12:56PM BY MARSHA BRADLEY MA, ANNOTATI ON/ADDEN DUM Lopez Arce MD [address] [facility] [address], [facility] [place], [address], [facility] 6 15:30:13 Renewal of prescrip tion Completed 201104/17/2014 RECORDED 05/25/20 12 1:47PM BY MARSHA BRADLEY MA, ANNOTATI ON/ADDEN WILMA Roque [facility] [address] [address], [facility] [place], [address], [facility] 6 10:06:59 Overweig ht [id number] Completed 201309/02/2016 IMPRESSI ON: POTENTIA L CARE HOME HEALTH CONSEQUE NCES DISCUSSE D. HEALTHY DIET AND EXERCISE HABITS ADVISED. ; RECORDED 11/01/19 14 10:57AM BY MARSHA BRADLEY MA, OFFICE VISIT Lopez Arce MD [address] [facility] [address], [facility] [place], [address], [facility] 6 15:29:07 Allergic rhinitis 57164285 Active 2013 Marsha Bradley MA null, [facility] 7 14:59:59 Chronic sinusiti s 40810832 Completed 201204/17/2014 IMPRESSI ON: SOUNDS ALLERGY RELATED. PT ADVISED TO HOLD OFF ON ADDITION AL ABX UNLESS FEVER OR PURULENT NASAL DISCHARG E DEVELOPS .; RECORDED 05/31/20 13 12:56PM BY MARSHA BRADLEY MA, ANNOTATI ON/ADDEN DUM Ally Roque, [facility] [address], [place], [address], [facility] 6 10:06:59 Anxiety state 385834697 Active 2013 Marsha Bradley MA null, [facility] 7 14:59:59 Allergic rhinitis 49443736 Completed 201205/14/2014 RECORDED 11/01/19 13 1:51AM BY MARIOLA GARCIA MA, ANNOTATI ON/ADDEN DUM Lopez Arce MD [address], [place], [address], [facility] 6 15:30:21 Adult health examinat ion Completed 201105/14/2014 RECORDED 07/22/20 12 9:26AM BY MARIOLA GARCIA MA, ANNOTATI ON/ADDEN DUM lAly Roque, [facility] [address], [place], [address], [facility] 6 10:06:59 Patient status finding [id number] Completed 201205/14/2014 RECORDED 05/31/20 13 12:56PM BY MARSHA BRADLEY MA, ANNOTATI ON/ADDEN DUM Ally Roque, [facility] [address], [place], [address], [facility] 6 10:06:59 Screenin g for malignan t neoplasm of breast Completed 201105/14/2014 RECORDED 07/22/20 12 9:26AM BY MARIOLA GARCIA MA, ANNOTATI ON/ADDEN DUM Ally Roque, [facility] [address], [place], [address], [facility] 6 10:06:59 Nash n [id number] Completed 201205/14/2014 IMPRESSI ON: PERSISTE NT, WILL FU WITH OPTHALMO LOGIST, PT TO MAKE APPT.; RECORDED 12/29/19 13 1:35PM BY MARSHA BRADLEY MA, ASHLEY ON/ADDOLAF Roque, [facility] [address] [facility] [address], [place], [address], [facility] 6 10:06:59 Conjunct ivitis 1113616 Completed 201205/14/2014 RECORDED 12/29/19 13 1:35PM BY MARSHA BRADLEY MA, ANNOTATI ON/BRANDON Roque, [facility] [address], [place], [address], [facility] 6 10:06:59 Cough [id number] Completed 201205/14/2014 IMPRESSI ON: VIRAL LIKELY. PERTUSSI S CONSIDER ED SINCE HAS COUGH IN FITS, NO HX TDAP, AND COUGH STARTED AFTER HEAD COLD. LONG DISCUSSI ON ON DOING PCR TEST, ABX EFFICACY , COURSE AND CONTAGIO SNESS PERTUSSI S, ETC. RAÚL WAS UNSURE ABOUT WHAT TO DO AND DECIDED TO NOT DO PCR TEST, DO ABX, AND STAY OUT OF WORK UNTIL WED. AVOID INFANTS; RECORDED 12/29/19 13 1:35PM BY MARSHA BRADLEY MA, ANNOTATI ON/BRANDON Roque, [facility] [address] [facility] [address], [place], [address], [facility] 6 10:06:59 Influenz a vaccine needed [id number] 06 Completed 201205/14/2014 RECORDED 12/29/19 13 1:35PM BY MARSHA BRADLEY MA, ASHELY ON/ADDOLAF Roque, [facility] [address], [place], [address], [facility] 6 10:06:59 Speciali zed medical examinat ion Completed 201205/14/2014 IMPRESSI ON: IF NL WILL DEFER REPEAT SCREENIN G FOR 3-5 YEARS.; RECORDED 09/25/20 13 1:07PM BY MARSHA BRADLEY MA, ASHLEY ON/ADDOLAF Roque, [facility] [address] [facility] [address], [place], [address], [facility] 6 10:06:59 Microsco pic hematuri a [id number] Completed 201205/14/2014 IMPRESSI ON: WILL REASSESS AND CONSIDER IMAGING IF PERSISTA NT/WORSE .; RECORDED 09/25/20 13 1:07PM BY MARSHA BRADLEY MA, ASHLEY ON/ADDEN DUM Ally Roque, [facility] [address] [facility] [address] [facility], [place], [address], [facility] 6 10:06:59 Renewal of prescrip tion Completed 201105/14/2014 RECORDED 05/25/20 12 1:47PM BY MARSHA BRADLEY MA, ASHLEY ON/BRANDON Roque, [facility] [address] [facility] [address], [place], [address], [facility] 6 10:06:59 Chronic sinusiti s 51439329 Completed 201205/14/2014 IMPRESSI ON: SOUNDS ALLERGY RELATED. PT ADVISED TO HOLD OFF ON ADDITION AL ABX UNLESS FEVER OR PURULENT NASAL DISCHARG E DEVELOPS .; RECORDED 05/31/20 13 12:56PM BY MARSHA BRADLEY MA, ASHLEY ON/BRANDON Roque, [facility] [address] [facility] [address], [place], [address], [facility] 6 10:06:59 Urinary tract infectio us disease 88416958 Completed 08/17/2014 Ally Roque, [facility] [address] [facility] [address], [place], [address], [facility] 6 10:06:59 Anxiety 05495053 Completed 04/24/2015 TOD Tee [address], [place], [address], [facility] 6 10:06:59 Body mass index 25-29 - overweig ht 088905193 Completed 12/06/2018 Lopez Arce MD [address] [facility] [address], [place], [address], [facility] 4 10:25:08 Environm ental allergy 593235984 Active WINTER Hidalgo, [facility] 7 14:59:59 Increase d frequenc y of urinatio n 092476820 Active WINTER H[place]go, [facility] 7 14:59:59 Acute pharyngi tis 323118687 Completed 04/24/2015 TOD Tee [address], [place], [address], [facility] 6 10:06:59 Recurren t sinusiti s 265021653 Completed 08/21/2015 TOD Tee [address], [place], [address], [facility] 6 10:06:59 Gastroes ophageal reflux disease 890263755 Active WINTER Hidalgo, [facility] 7 14:59:59 Low back pain 028642189 Completed 09/02/2016 Lopez Arce MD [address], [place], [address], [facility] 4 10:53:55 Blood in urine 68720311 Completed 12/03/2017 Lopez Arce MD [address], [place], [address], [facility] 8 15:54:26 Hemoglob inuria 97334417 Completed 201312/03/2017 Lopez Arce MD [address], [place], [address], [facility] 8 15:53:25 Acute sinusiti s 43735407 Completed 09/02/2016 Lopez Arce MD [address], [place], [address], [facility] 6 15:26:19 Strain of trapeziu s muscle 666350786 Completed 08/06/2017 Lopez Arce MD [address], [place], [address], [facility] 7 15:18:20 Postmeno pausal bleeding 10569811 Completed 09/02/2016 Lopez Arce MD [address], [place], [address], [facility] 6 15:30:23 Irritabl e bowel syndrome 82775400 Active 2018 Lopez Arce MD [address], [place], [address], [facility] 9 11:34:20 Body mass index 30+ - obesity 524373818 Completed 201812/11/2019 Lopez Arce MD [address], [place], [address], [facility] 2 10:11:43 Diastoli c dysfunct ion 3550483 Active 2019 Lopez Arce MD [address], [place], [address], [facility] 0 07:50:44 Mitral valve regurgit ation 94895588 Active 2019 trace Lopez Arce MD [address] [address], [place], [address], [facility] 0 07:50:54 Suspecte d COVID-19 739837635 Completed 05/09/2021 Removal Reason: Problem added by user [email or web address] from the COVID-19 watch flag Nano Walton null, [facility] 1 13:21:43 Adjustme nt disorder with mixed emotiona l features 45048416 Completed 202112/30/2023 Lopez Arce MD [address] [address], [place], [address], [facility] 4 10:14:54 Polyp of colon 96837917 Active 2021 Lopez Arce MD [address] [address], [place], [address], [facility] 2 12:48:04 Allergic conjunct ivitis of bilatera l eyes 52747366811 9102 Active 2021 Lopez Arce MD [address] [address], [facility] [place], [address], [facility] 2 09:40:19 Benign paroxysm al position al vertigo 645295921 Active 2021 TOD Tee [address] [address], [facility] [place], [address], [facility] 2 10:19:10 Dysfunct ion of eustachi an tube 38661464 Active 2021 TOD Tee [address] [address], [place], [address], [facility] 2 10:28:36 Albuminu juliette 724728419 Completed 202212/30/2023 Lopez Arce MD [address], [place], [address], [facility] 4 10:25:08 History of Intestin al infectio n caused by Clostrid ioides difficil e 10811630647 9101 Active 2022 Lopez Arce MD [address], [place], [address], [facility] 3 09:45:23 Body mass index 25-29 - overweig ht 198787223 Active 2023 Lopez Arce MD [address], [place], [address], [facility] 4 10:25:08 Left bundle branch block 95995112 Active 2023 Lopez Arce MD [address] [facility] [address], [place], [address], [facility] 4 11:00:27 Feces contents abnormal 125598884 Completed 01/01/2025 Lopez Arce MD [address], [place], [address], [facility] 5 09:49:28 Low back pain 292347438 Active 2023 Lopez Arce MD [address], [place], [address], [facility] 4 10:53:55 Pain of right knee joint 87127391198 4100 Active 2023 Lopez Arce MD [address] [facility] [address], [place], [address], [facility] 4 10:54:05 Problem Notes None recorded. Procedures Surgical History Date Name Laterality Status Provider Name and Address Organization Details Recorded Time 06/05/20 Date of Last Colonoscopy completed Teresa Mendoza MA [facility] 01/01/2025 09:41:27 06/05/20 22 colonoscopy completed Lopez Arce MD [address] [facility], [place], [address], [facility] 06/28/2022 12:47:05 12/24/19 21 Date of Last Pap Smear completed Teresa Mendoza MA [facility] 12/28/2022 08:31:50 05/02/20 20 echocardiography completed Lopez Arce MD [address] [facility], [place], [address], [facility] 05/03/2020 07:51:48 01/03/20 19 Echo transthoracic completed Lopez Arce MD [address] [facility], [place], [address], [facility] 01/02/2019 12:40:55 10/02/20 16 Most Recent Mammogram completed Teresa Mendoza [facility] 12/28/2022 08:40:51 10/02/20 16 Mammogram Screening completed Marsha Bradley MA [facility] 12/03/2017 15:25:29 09/15/20 12 completed Marsha Bradley MA [facility] 08/17/2014 15:39:11 07/18/20 10 completed Marsha Bradley MA [facility] 08/17/2014 15:39:11 07/18/20 10 Colonoscopy completed Marsha Bradley MA [facility] 08/17/2014 15:39:11 Appendectomy completed Marsha Bradley MA [facility] 05/10/2014 13:31:53 Cholecystectomy completed Marsha Bradley MA [facility] 05/10/2014 13:31:53 ENT Surgery completed Lopez Arce MD [address] [facility], [place], [address], [facility] 08/21/2015 15:17:38 Dxa bone density study completed Sharon Gasca [facility] 12/23/2020 14:56:14 Imaging Results None recorded. Procedure Notes None recorded. Medical Equipment None Reported. Allergies Allergen ID Allergen Name Allergen Category Reaction Reaction Severity Criticality Documentation Date Start Date Code Code System Note Provider Name and Address Organization Details Recorded Time 77864 shellfish derived food,medi cation Not available Not available Not available 05/25/2019 57101 NADEGEWINTER Figueroa [facility] 9 09:13:32 46445 tree nut food Not available Not available Not available 05/25/2019 96454 UNWINTER Figueroa [facility] 9 09:13:38 44684 metoprolo l Not available diarrhea moderate Not available 07/12/2019 6918 RxNorm Lopez Arce MD [address] [address], [place], [address] 9 19:44:27 11361 Augmentin medicatio n vomiting moderate Not available 05/07/20212020 28987 2 RxNorm WINTER Hidalgo [facility] 2 11:37:38 68153 Shellfish (substanc e) food,medi cation Not available Not available Not available 06/12/2024 35683 9006 SNOMED WINTER Parada [facility] 4 10:02:04 Medications Name Sig Start Date Stop Date Status Note LastModified by Organization Details LastModified Time lisinopri l/hydroch lorothiaz trevin 10-12.5 mg tabs active Not Available Not Available Not Available labetalol hcl 100 mg tabs active Not Available Not Available Not Available fluticaso ne propionat e 50 mcg/act susp active Not Available Not Available Not Available azelastin e 0.05 % eye drops INSTILL 1 DROP INTO AFFECTED EYE(S) BY OPHTHALM IC ROUTE 2 TIMES PER DAY NEEDED active Not Available Not Available No t Available prednison e 10 mg tablet Take 4 tablets by mouth for 3 days, then 3 tablets by mouth daily for 3 days, then 2 tablets by mouth for 3 days then 1 tablet by mouth daily for 3 days 12/25 completed Not Available Not Available Not Available Toprol XL 25 mg tablet,ex tended release Take 1 tablet every day by oral route. 05/25 completed diarrhea Not Available Not Available Not Available Saline Mist 0.65 % nasal spray aerosol Take 1 spray every day by nasal route for 14 days. 05/27 completed Not Available Not Available Not Available azithromy irina 250 mg tablet TAKE 2 TABLETS (500 MG) BY ORAL ROUTE ONCE DAILY FOR 1 DAY THEN 1 TABLET (250 MG) BY ORAL ROUTE ONCE DAILY FOR 4 DAYS 2014 active Not Available Not Available Not Avai lable Claritin 10 mg tablet Take 1 {tablet} as needed by oral route. 06/12 completed Not Available Not Available Not Available prednison e 20 mg tablet TAKE 2 TABLETS BY MOUTH EVERY DAY FOR 5 DAYS DIRECTED 10/30 completed Not Available Not Available Not Available meclizine 12.5 mg tablet Take 1 tablet 3 times a day by oral route as needed for 10 days. 01/01 completed Not Available Not Available Not Available Zyrtec 10 mg tablet Take 1 tablet every day by oral route for 30 days. 09/16 completed Not Available Not Available Not Available ciproflox acin 250 mg tablet Take 1 tablet every 12 hours by oral route for 7 days. 05/30 completed Not Available Not Available Not Available vancomyci n 125 mg capsule TAKE 1 CAPSULE BY MOUTH FOUR TIMES DAILY FOR 10 DAYS 06/29 completed Not Available Not Available Not Available amoxicill in 875 mg tablet TAKE 1 TABLET BY MOUTH EVERY 12 HOURS FOR 7 DAYS 12/29 completed Not Available Not Available Not Available lorazepam 0.5 mg tablet TAKE 1 TABLET BY MOUTH EVERY DAY FOR 15 DAYS NEEDED active Not Available Not Available No t Available Proctozon e-HC 2.5 % topical cream perineal applicato r APPLY A THIN LAYER TO THE AFFECTED AREA(S) BY TOPICAL ROUTE 2-4 TIMESDAI LY 12/06 completed Not Available Not Available Not Available meclizine 25 mg tablet Take 1 tablet 3 times a day by oral route as needed. 06/13 completed Not Available Not Available Not Available cephalexi n 500 mg capsule Take 1 capsule every 6-8 hours by oral route for 5 days. 06/12 completed 12/30/23 will start today Not Available Not Available Not Available ranitidin e 150 mg tablet Take 1 tablet twice a day by oral route as needed. 12/03 completed Not Available Not Available Not Available lisinopri l 10 mg tablet TAKE 1 TABLET BY MOUTH EVERY DAY active Not Available Not Available No t Available polymyxin B sulfate 10,000 unit-trim ethoprim 1 mg/mL eye drops QID 09/02 completed Not Available Not Available Not Available Senna Laxative 8.6 mg tablet TAKE 2 TABLETS BY MOUTH DAILY 12/06 completed Not Available Not Available Not Available amoxicill in 400 mg/5 mL oral suspensio n Take 20 mL twice a day by oral route for 10 days. 05/27 completed Not Available Not Available Not Available hydrochlo rothiazid e 25 mg tablet TAKE 1 TABLET BY MOUTH EVERY DAY active Not Available Not Available No t Available lisinopri l 10 mg-hydroc hlorothia zide 12.5 mg tablet take 1 tablet by mouth once daily 12/03 completed Not Available Not Available Not Available Pepcid 20 mg tablet Take 1 tablet as needed by oral route. 01/01 completed Not Available Not Available Not Available levofloxa irina 500 mg tablet TAKE 1 TABLET BY MOUTH EVERY 24 HOURS FOR 10 DAYS 12/25 completed Not Available Not Available Not Available levofloxa irina 750 mg tablet TAKE 1 TABLET BY MOUTH EVERY DAY FOR 5 DAYS 05/13 completed Not Available Not Available Not Available labetalol 100 mg tablet Take 0.5 tablets twice a day by oral route for 30 days. 09/02 completed Not Available Not Available Not Available ipratropi um bromide 42 mcg (0.06 %) nasal spray SPRAY 2 SPRAYS INTRANAS ALLY THREE TIMES DAILY 06/12 completed ON HOLD Not Available Not Available Not Available fluticaso ne propionat e 50 mcg/actua tion nasal spray,lindsay pension SHAKE LIQUID AND USE 2 SPRAYS IN EACH NOSTRIL EVERY DAY 05/06 completed Not Available Not Available Not Available doxycycli ne hyclate 100 mg tablet TAKE 1 TABLET BY MOUTH TWICE DAILY FOR 14 DAYS DIRECTED 08/09 completed Not Available Not Available Not Available amoxicill in 875 mg-potass ium clavulana te 125 mg tablet Take 1 tablet every 12 hours by oral route for 10 days. 11/09 completed Not Available Not Available Not Available Tylenol Extra Strength 500 mg tablet Take 2 tablets every 6 hours by oral route for 10 days. 05/27 completed Not Available Not Available Not Available codeine-g uaifenesi n oral syrup Q 4 HOURS PRN COUGH 12/03 completed RECORDED 12/13/19 13 11:53AM BY FELECIA CALHOUN, MEDICATI ON AUTO-TOBY CTIVATIO N;CAUTIO N DROWSINE SS Not Available Not Available Not Available Systane (propylen e glycol) 0.4 %-0.3 % eye drops Apply 1 drop every 2 hours by ophthalm ic route as needed. 2021 active Not Available Not Available Not Avai lable Prilosec OTC 20 mg tablet,de layed release Take 1 tablet every day by oral route. active Not Available Not Available No t Available Carla-D 12 Hour 1 daily as needed 01/01 completed Not Available Not Available Not Available hydrochlo rothiazid e 12.5 mg tablet Take 1 tablet every day by oral route for 30 days. 12/16 completed Not Available Not Available Not Available Probiotic 1 daily 08/09 completed Not Available Not Available Not Available Carla Allergy 1 daily as needed active Not Available Not Available No t Available Afluria 5990-7225 (PF) 45 mcg(15 mcg x 3)/0.5 mL intramusc ular syringe 09/02 completed Not Available Not Available Not Available Flonase Sensimist 27.5 mcg/actua tion nasal spray,lindsay pension Take 1 spray every day by nasal route at bedtime for 30 days. 2023 active prn Not Available Not Available Not Avai lable Vitals Date Recorded Body height Body mass index (BMI) Body weight Heart rate Oxygen saturation Oxygen saturation in Arterial blood by Pulse oximetry Body temperature Systolic blood pressure Diastolic blood pressure Provider Name and Address Organization Details Last Updated DateTime 3 162.56 cm 29.1 kg/m2 31906.5 1 g 83 /min 98 % 98 % 97.2 [degF] 125 mm[Hg] 77 mm[Hg] Teresa Cesar [facility] 3 09:24:09 Date Recorded Body height Body mass index (BMI) Body weight Heart rate Oxygen saturation Oxygen saturation in Arterial blood by Pulse oximetry Body temperature Systolic blood pressure Diastolic blood pressure Provider Name and Address Organization Details Last Updated DateTime 4 162.56 cm 29.2 kg/m2 03550.7 g 100 /min 99 % 99 % 98 [degF] 120 mm[Hg] 74 mm[Hg] Teresa Cesar [facility] 4 09:37:54 Date Recorded Body height Body mass index (BMI) Body weight Heart rate Oxygen saturation Oxygen saturation in Arterial blood by Pulse oximetry Body temperature Systolic blood pressure Diastolic blood pressure Provider Name and Address Organization Details Last Updated DateTime 4 162.56 cm 29.1 kg/m2 70594.5 1 g 77 /min 98 % 98 % 97.2 [degF] 126 mm[Hg] 78 mm[Hg] Teresa Cesar [facility] 4 10:17:14 Date Recorded Body height Body mass index (BMI) Body weight Heart rate Oxygen saturation Oxygen saturation in Arterial blood by Pulse oximetry Body temperature Systolic blood pressure Diastolic blood pressure Provider Name and Address Organization Details Last Updated DateTime 4 162.56 cm 29.2 kg/m2 60841.8 g 100 /min 98 % 98 % 98 [degF] 113 mm[Hg] 71 mm[Hg] Teresa Cesar [facility] 4 10:58:06 Date Recorded Body height Body mass index (BMI) Body weight Heart rate Oxygen saturation Oxygen saturation in Arterial blood by Pulse oximetry Body temperature Systolic blood pressure Diastolic blood pressure Provider Name and Address Organization Details Last Updated DateTime 5 160.66 cm 29.2 kg/m2 79203.7 3 g 89 /min 99 % 99 % 97.9 [degF] 120 mm[Hg] 70 mm[Hg] Teresa Mendoza MA [facility] 5 09:40:13 Social History Question Answer Notes LastModified by Organizat ion Details LastModified Time Tobacco Smoking Status Never Smoker Not Available [employer] 08/06/2020 03:36:42 Do You Have An Advance Directive? Yes HCP/ -Jovanny Information not available 08/28/2022 What Is Your Level Of Alcohol Consumption? Occasional [id number] Information not available 08/06/2020 Is Blood Transfusion Acceptable In An Emergency? Yes [id number] Information not available 08/06/2020 What Is Your Level Of Caffeine Consumption? Occasional Information not available 12/23/2020 How Much Tobacco Do You Chew? None [id number] Information not available 08/06/2020 In The 14 Days Before Symptom Onset, Have You Had Close Contact With A Laboratory-confi rmed COVID-19 While That Case Was Ill? No Information not available 08/28/2022 In The 14 Days Before Symptom Onset, Have You Had Close Contact With A Person Who Is Under Investigation For COVID-19 While That Person Was Ill? No Information not available 08/28/2022 Have You Been To An Area Known To Be High Risk For COVID-19? No Information not available 08/28/2022 Are You Currently Employed? No Retired Information not available 12/30/2023 What Type Of Diet Are You Following? REGULAR [id number] Information not available 08/06/2020 Which Illicit Or Recreational Drugs Have You Used? None [id number] Information not available 08/06/2020 Do You Or Have You Ever Used E-cigarettes Or Vape? 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 With Others (Jovanny) Information not available 12/28/2022 Do You Take Precautions To Prevent Distracted Driving? Yes [email or web address] Information not available 08/21/2015 How Often Do You Need To Have Someone Help You When You Read Instructions, Pamphlets, Or Other Written Material From Your Doctor Or Pharmacy? Never Information not available 01/09/2016 Have You Served In The ? No Information not available 09/02/2016 Have You Or Anyone In Your Household Had Any Of The Following Symptoms In The Last 14 Days: Sore Throat, Cough, Chills, Body Aches For Unknown Reasons, Shortness Of Breath For Unknown Reasons, Loss Of Smell, Loss Of Taste, Fever At Or Greater Than 100 Degrees Fahrenheit? No Information not available 04/20/2020 Are You Or Anyone In Your Household A Health Care Provider Or Emergency Responder? No Information not available 04/20/2020 To The Best Of Your Knowledge Have You Been In Close Proximity To Any Individual Who Tested Positive For COVID-19? No Information not available 12/23/2020 *AWV ONLY* Are You Presently Prescribed Opioid Medication By PCP Or Specialist? If YES -Provider Assess The Benefit For Other, Non-opioid Pain Therapies Instead, Even If The Patient Does Not Have OUD But Is Possibly At Risk. No Information not available 12/23/2020 Have You Recently Traveled To A COVID-19 High Risk Area Or Gathering In The Last 10 Days? No Information not available 10/22/2020 What Was The Date Of Your Most Recent Tobacco Screening? 01/01/2025 [email or web address] Information not available 01/01/2025 How Many Children Do You Have? 3 Teetee Knight, And Sudarshan, 3 Lamonte clay Information not available 01/01/2025 Do You Use Protection During Sex? No [id number] Information not available 08/06/2020 Do You Use Your Seat Belt Or Car Seat Routinely? Yes Information not available 12/25/2021 Seat Belts Used Routinely Yes Information not available 08/28/2022 Are You Sexually Active? Yes [id number] Information not available 08/06/2020 Smoke Alarm In Home Yes Information not available 08/28/2022 Do You Have Smoke And Carbon Monoxide Detectors In Your Home? Yes Information not available 12/25/2021 At What Age Did You Start Smoking Tobacco? 1 [id number] Information not available 08/06/2020 Are You Passively Exposed To Smoke? No Information not available 08/17/2014 Do You Or Have You Ever Used Smokeless Tobacco? Never Used Smokeless Tobacco [id number] Information not available 08/06/2020 How Much Tobacco Do You Smoke? No [id number] Information not available 08/06/2020 Do You Use Any Illicit Or Recreational Drugs? No Information not available 08/28/2022 Do You Use Sunscreen Routinely? Yes [id number] Information not available 08/06/2020 How Many Years Have You Smoked Tobacco? 0 [id number] Information not available 08/06/2020 Do You Or Have You Ever Used Any Other Forms Of Tobacco Or Nicotine? No Information not available 08/28/2022 Sex: Unknown Functional Status Question Answer Note LastModified by Vendavo ion Details LastModified Time Are you able to walk? YESWOREST Information not available 08/28/2022 Are you able to care for yourself? Yes [id number] Information not available 08/06/2020 What is your exercise level? Occasional [email or web address] Information not available 12/30/2023 Mental Status None recorded. Family History Relationship Description Onset Age of this Age Resolved Age Notes LastModified by Organization Details LastModified Time Mother Heart disease abolcun Not available 2021 09:41:52 Father Heart disease abolcun Not available 2021 09:41:52 Sister Psoriasis drosadorivera Not kyara ilable 01/01/2025 09:31:06 Sister Allergy abolcun Not available 0 12/25/2021 09:41:52 Sister Atrial fibrillation drosadorivera Not available 01/01/2025 09:31:06 Sister Well adult drosadorivera Not av ailable 01/01/2025 09:31:06 Medical History Condition Response Hypertension Y Allergies Y Gynecological History Statement/Question Response Date of Last Pap Smear 12/23/2020 Most Recent Mammogram 10/02/2016 09/15/2012 Date of Last Colonoscopy 06/05/2022 Most Recent Bone Density 07/18/2010 Obstetrics History GPAL:G 0 P 0 0 0 0 Immunizations Vaccine Type Date Status Note Provider Nam e and Address Organization Details Recorded Time Influenza, split virus, quadrivalent, preservative 6 completed Marsha Bradley [place] [facility] [place] 08/06/2017 15:00:07 Influenza, split virus, trivalent, PF 7 [facility] [place] 04/14/2022 10:56:36 COVID-19, mRNA, LNP-S, PF, 30 mcg/0.3 mL dose 1 completed Marsha Bradley [place] [facility] [place] 11/20/2021 12:56:21 COVID-19, mRNA, LNP-S, PF, 30 mcg/0.3 mL dose 1 completed Marsha Bradley [place] [facility] [place] 11/20/2021 12:56:21 Influenza, split virus, trivalent, PF 6 completed Marsha Bradley [place] [facility] [place] 11/20/2021 12:56:21 COVID-19, mRNA, LNP-S, PF, 30 mcg/0.3 mL dose 1 completed Marsha Bradley [place] [facility] [place] 11/20/2021 12:56:21 Influenza, split virus, quadrivalent, PF 9 completed Marsha Bradley [place] [facility] [place] 04/14/2022 10:56:36 Influenza, split virus, quadrivalent, PF 8 completed Marsha Bradley [place] [facility] [place] 04/14/2022 10:56:36 Influenza, split virus, trivalent, PF 4 completed Marsha Bradley [place] [facility] [place] 04/14/2022 10:56:36 Influenza, split virus, quadrivalent, PF 0 completed [place] [facility] [place] 04/14/2022 10:56:36 Td (adult), 2 Lf tetanus toxoid, preservative free, adsorbed 0 completed [place] [facility] [place] 04/14/2022 10:56:36 Influenza, split virus, quadrivalent, PF 2 completed [place] [facility] [place] 08/28/2022 09:08:41 COVID-19, mRNA, LNP-S, bivalent, PF, 30 mcg/0.3 mL dose 2 completed [place] [facility] [place] 08/28/2022 09:08:41 zoster recombinant 3 completed [place] [facility] [place] 06/29/2023 09:17:14 zoster recombinant 3 completed [place] [facility] [place] 12/30/2023 09:33:33 Pneumococcal conjugate PCV20, polysaccharide [id number] conjugate, adjuvant, PF 3 [facility] [place] 12/30/2023 09:33:33 RSV, recombinant, protein subunit RSVpreF, adjuvant reconstituted, 0.5 mL, PF 3 completed [place] [facility] [place] 12/30/2023 09:33:33 COVID-19, mRNA, LNP-S, PF, vladimir-sucrose, 30 mcg/0.3 mL 3 completed [place] [facility] [place] 12/30/2023 09:33:33 Influenza, split virus, trivalent, preservative 1 completed [place] [facility] [place] 06/12/2024 10:17:37 Influenza, split virus, trivalent, preservative 3 completed [place] [facility] [place] 06/12/2024 10:17:37 Influenza, high-dose, quadrivalent, PF 3 completed [place] [facility] [place] 08/09/2024 10:56:47 COVID-19, mRNA, LNP-S, PF, vladimir-sucrose, 30 mcg/0.3 mL 4 completed [place] [facility] [place] 08/09/2024 10:56:47 Influenza, high-dose, trivalent, PF 4 completed [place] [facility] [place] 08/09/2024 10:56:47 Influenza, split virus, quadrivalent, PF 1 completed [place] [facility] [place] 08/09/2024 10:56:47 Influenza, split virus, trivalent, preservative 3 completed [place] [facility] [place] 08/06/2017 15:00:07 Tdap 0 completed [place] [facility] [place] 08/06/2017 15:00:07 Past Encounters Encounter ID Performer Location Encounter Start Date Encounter Closed Date Diagnosis/Indication Diagnosis SNOMED-CT Code Diagnosis ICD10 Code Diagnosis Note [id number] [address] [facility] [place] [address] 05/10/2014 13:18:02 05/10/2014 14:11:38 Essential hypertension 43747651 Well controlled . Continue current regimen. Pure hypercholesterolemia 845134740 Borderline in the past with other CV risk factors. Will follow. Allergic rhinitis 40478832 Havign a rough time lately, likely ragweed. Will try different antihistam ine and continue nasal steroid. Consider ENT/allerg y referral if persistant /worse. [id number] [facility] [facility] [place] [address] 05/25/2012 00:00:00 [id number] [address] [facility] [facility] [place] [address] 07/22/2012 00:00:00 [id number] auto[address] er[address] [facility],[place] [address] [place], [place] [address] 11/25/2012 00:00:00 [id number] auto[address] [address] [facility],[place] [address] [place], [place] [address] 12/28/2012 00:00:00 [id number] auto[address] erce [address] [facility],[place] [address] [place], [place] [address] 05/31/2013 00:00:00 [id number] [address] [address] [facility],[place] [address] [place], [place] [address] 09/25/2013 00:00:00 [id number] [address] [address] [facility],[place] [address] [place], [place] [address] 11/01/2013 00:00:00 [id number] Marsha Bradley MA Main Office [address] [address] [place] [address] 08/17/2014 15:10:30 08/17/2014 16:35:48 Adult health examination 127217270 Will update immunizati on status and screen based on risk factors. Regualr dental and ophtho care advised as well as seatblet and sunscreen use. Breast, cervical and colon cancer screening utd. Advance directives discussed. Needs infl uenza immunization 114165700 Anxiety 58694125 Fligth anxiety, using PRN. Body mass index 25-29 - overweight 574103519 Essential hypertension 45125920 Well controlled . Continue current regimen. Pure hypercholesterolemia 135294654 Borderline in the past with other CV risk factors. Will follow. Environmental allergy 526863825 Consider allergy referral if persistent /worse. Increased frequency of urination 595038823 Start with imaging and if unremarkab le and symptoms worsen/per sist refer to urology. [id number] Lopez Arce MD Main Office [address] [address] [place] [address] 08/21/2014 11:43:33 08/21/2014 12:13:24 Acute pharyngitis 868722904 rapid strep neg., c/w viral infx. [id number] Main Office [address] [address] [place] [address] 04/24/2015 15:03:28 04/24/2015 15:59:44 Essential hypertension 70846621 Well controlled . Continue current regimen. Pure hypercholesterolemia 682727495 Borderline in the past with other CV risk factors. Will reassess Gastroesop hageal reflux disease 128939973 Well controlled without warning signs. Continue current regimen. Allergic rhinitis 58943765 Well controlled , continue current regimen. Low back pain 461546449 Suspect SIJ mediated pain. If persistent /worse consider PT referral. [id number] Lopez Arce MD Main Office [address] [address] [place] [address] 08/21/2015 14:44:23 08/21/2015 15:42:48 Adult health examination 088165773 Z00.00 Immunizati on status utd will screen based on risk factors. Regualr dental and ophtho care advised as well as seatbelt and sunscreen use. Breast, cervical and colon cancer screening utd. Advance directives discussed. Body mass index 25-29 - overweight 590127787 E66.3 Blood in urine 80612971 R31.9 If persistent on clean catch will consider further evaluation . Screening for malignant neoplasm of breast 897845429 Z12.39 Orders provided. Pt to arrage kandice. [id number] Lopez Arce MD Main Office [address] [address] [place] [address] 01/09/2016 09:55:09 01/09/2016 10:33:42 Acute sinusitis 88954987 J01.90 Symptomati c treatment- lots of fluids, rest, tea with honey, OTC cough drops/ cough med as needed, humidifier , nasal sinus rinses as needed, doxy as prescribed [id number] Lopez Arce MD Main Office [address] [address] [place] [address] 02/26/2016 12:44:24 02/26/2016 13:27:52 Essential hypertension 95315646 I10 Reaminas well controlled even low today. Will try weaning labetolol and d/c at f/u if still normotensi ve. Gastroesop hageal reflux disease 926407868 K21.9 Well controlled without warning signs. Try weaning PPI. Strain of trapezius muscle 499769771 S46.811A c/w muscle strain. Will try home PT and reassess. [id number] Lopez Arce MD Main Office [address] [facility] [address] [place] [address] 04/23/2016 14:37:01 04/23/2016 15:33:48 Essential hypertension 59896771 I10 Remains well controlled will d/c labetolol. Gastroesop hageal reflux disease 350894258 K21.9 Well controlled without warning signs. Try stopping PPI. Strain of trapezius muscle 213413628 S46.811A Persistent but improving. Radiculopa thy is possible. Consider EMG/PMR referral if persistent or worse. Postmenopa usal bleeding 94996787 N95.0 Will start with labs, due for routine pelvic exam this Fall. 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 [id number] Lopez Arce MD Main Office [address] [place] [address] 09/02/2016 14:38:21 09/02/2016 16:08:25 Adult health examination 752609383 Z00.00 Immunizati on status utd will screen based on risk factors. Regualr dental and ophtho care advised as well as seatbelt and sunscreen use. Breast, cervical and colon cancer screening utd. Advance directives discussed. Body mass index 25-29 - overweight 441936793 E66.3 Pure hypercholesterolemia 123050939 E78.01 10 yr CV risk currently 3.6% Screening for malignant neoplasm of cervix 677073879 Z12.4 Sampling o f vagina for Papanicolaou smear 899533976 Z01.419 Screening for malignant neoplasm of breast 857204959 Z12.39 Orders provided. Pt to arrage kandice. Essential hypertension 52737715 I10 Well controlled . Continue current regimen. Polyp at cervical os 248 543263 N84.1 [id number] Lopez Arce MD Main Office [address] [address] [place] [address] 08/06/2017 14:49:11 08/06/2017 16:29:27 Essential hypertension 02533928 I10 Well controlled . Continue current regimen. Gastroesop hageal reflux disease 423307970 K21.9 Well controlled on H2B without warning signs. Will continue current regimen. Pure hypercholesterolemia 531764821 E78.01 10 yr CV risk was 3.6%. Will reasess. Dysfunctio n of eustachian tube 49942670 H68.002 change antihistam ine to Zyrtec and continue nasal steroid. [id number] Lopez Arce MD Main Office [address] [facility] [address] [place] [address] 10/14/2017 13:35:41 10/14/2017 14:48:43 Dysuria 65558865 R30.0 rec. cranberry juice, pending check u/a and c&s Low back pain 999342242 M54.5 mild, pt declined PT - rec increase HEP - instructed her on a few stretches Paronychia of toe 019928 002 L03.039 right 2nd toe - better as per pt - rec cont soaks as dir Sinusitis 30342291 J32.9 rec nasal saline spray and mucolytics - if no sig improvemen t in a few days then take abx as dir - advised pt to d/w pharmacist if can crush tab [id number] Lopez Arce MD Main Office [address] [facility] [address] [place] [address] 12/03/2017 15:07:01 12/03/2017 16:32:07 Adult health examination 343489098 Z00.00 Immunizati on status utd will screen based on risk factors. Regular dental and ophtho care advised as well as seat belt and sunscreen use. Breast, cervical and colon cancer screening utd. Advance directives discussed. Body mass index 25-29 - overweight 841781775 E66.3 Z68.29 Screening for malignant neoplasm of breast 881326477 Z12.39 Orders provided. Pt to arrage kandice. Plantar heel pain 528712 03 M79.671 Call for podiatry referral inb/worse. Lightheadedness 04252995 8 R42 Will adjust BP regimen adjustment /after d/c of ACEI. Essential hypertension 16389092 I10 Well controlled . Continue current regimen. Pure hypercholesterolemia 025737963 E78.01 10 yr CV risk was 3%. TLC advised. [id number] Lopez Arce MD Main Office [address] [address] [place] [address] 01/05/2018 15:05:41 01/05/2018 16:11:31 Essential hypertension 65353409 I10 Well controlled . Continue current regimen. Pure hypercholesterolemia 744590477 E78.01 10 yr CV risk is currently 3%. TLC advised. Will follow. Gastroesop hageal reflux disease 605280545 K21.9 Well controlled on H2B without warning signs. Will continue current regimen. [id number] Lopez Arce MD Main Office [address] [address] [place] [address] 07/07/2018 15:07:18 07/07/2018 16:00:12 Essential hypertension 93435929 I10 Well controlled . Continue current regimen. Needs infl uenza immunization 923940031 Z23 Varicella vaccination 68 436826 Z23 Gastroesop hageal reflux disease 276017599 K21.9 Well controlled on H2B without warning signs. Will continue current regimen. [id number] Lopez Arce MD Main Office [address] [address] [place] [address] 08/23/2018 09:09:40 08/23/2018 10:06:47 Abscess of left axilla 2181374940 5359882 L02.412 Not drainable at this point. Will try warm compress and abx. Call inb/worse. Essential hypertension 18144577 I10 Not at goal but likely related to diet/stres s. Will have it checked at school and call if >140/90. Would increase diuretic then. Lightheadedness 06380006 8 R42 Usually happens with allergies/ URI. Pt advised to resume nasal steroid if persistent and call if worse or if new symptoms develop. [id number] Lopez Arce MD Main Office [address] [address] [place] [address] 11/09/2018 10:56:14 11/09/2018 11:46:36 Hemorrhoids 09240668 K64.9 Likely related to constipati on. Will address acutely and see if better constipati on management helps mitigate recurrence . Call if persistent /worse. Constipation 73187359 K5 9.00 Increased fiber intake advised and laxative dose titration discussed. Irritable bowel syndrome 75101223 K58.9 Chronic issue, working on constipati on. Screening for malignant neoplasm of colon 474090695 Z12.11 Due next year for routine but if bleeding recurs or other symptoms develop irrespecti ve of her hemorrhoid s will need GI f/u kandice. [id number] Lopez Arce MD Main Office 36[address] [facility] [address] [facility] [place] [address] 12/06/2018 15:00:54 12/06/2018 17:01:02 Adult health examination 788446693 Z00.00 Immunizati on status utd, Shingrix advised via local pharmacy. Will screen based on risk factors. Regular dental and ophtho care advised as well as seat belt and sunscreen use. Breast, cervical and colon cancer screening utd. Advance directives discussed. Screening for malignant neoplasm of breast 640945124 Z12.39 Orders provided. Pt to arrage kandice. Menopause present 945617 006 Z78.0 Check baseline. If nl will defer f/u until age 63. Essential hypertension 49638749 I10 Well controlled , continue current regimen. ECG done to screen for LVH. Obesity 170970136 E66.9 Z68.30 Pure hypercholesterolemia 662832214 E78.01 Will reassess and discuss mgmt based on CVD risk score. Gastroesop hageal reflux disease 263522987 K21.9 Well controlled on H2B without warning signs. Will continue current regimen. Left bundl e branch block 94426546 I44.7 ECG shows LBBB. No prior for comparison although pt reports cardiac testing in the past with previous PCP's. Denies any symptoms but based on this and her family history will refer for further cardiac testing. [id number] Lopez Arce MD Main Office [address] [place] [address] 04/25/2019 15:18:58 04/25/2019 16:12:06 Generalized anxiety disorder 54791773 F41.1 Will resume previously tolerated and effected anxiolytic , and monitor use. Consider SSRI and therapy referral if persistent /worse. Essential hypertension 80011378 I10 Will titrate BB as per cardiology plan, which may help with anxiety/pa lpitations as well. [id number] Lopez Arec MD Main Office [address] [address] [place] [address] 05/25/2019 09:02:19 05/25/2019 09:50:27 Diarrhea 18798182 R19.7 Has increased since titrating BB which is a common side effect. Will discontinu e and resume previously tolerated diuretic dose. Call inb/worse. Essential hypertension 54104956 I10 BB dose titration may not be tolerable from BP perspectiv e. Will resume diuretic. [id number] Lopez Arce MD Main Office [address] [address] [place] [address] 07/06/2019 15:12:55 07/06/2019 16:15:16 Essential hypertension 67865147 I10 Will resume ACEI and titrate combo as tolerated to goal BP < 130/90. Has tolerated it well in the past. Needs infl uenza immunization 491583465 Z23 [id number] Lopez Arce MD Main Office [address] [address] [place] [address] 09/15/2019 15:10:44 09/15/2019 15:52:53 Essential hypertension 57186234 I10 Fair control on ACEI/diure tic combo. Prefers to work on diet/lifes tyle changes before increasing either med doses. Will call with any problems. [id number] Lopez Arce MD Main Office [address] [address] [place] [address] 12/11/2019 15:28:25 12/11/2019 16:45:06 Adult health examination 629370478 Z00.00 Immunizati on status updated, Shingrix advised via local pharmacy. Will screen based on risk factors. Regular dental and ophtho care advised as well as seat belt and sunscreen use. Breast, cervical and colon cancer screening utd. Advance directives discussed. Varicella vaccination 68 655274 Z23 Screening for malignant neoplasm of colon 610351556 Z12.11 Due in the fall for routine. Screening for malignant neoplasm of breast 689467686 Z12.39 Orders provided. Pt to arrage kandice. Menopause present 909962 006 Z78.0 Check baseline. If nl will defer f/u until age 63. Screening for malignant neoplasm of cervix 719006700 Z12.4 Pt to schedule appt kandice. Essential hypertension 74086006 I10 Well controlled , continue current regimen. ECG done to screen for LVH. Obesity 060088556 E66.9 Z68.30 Pure hypercholesterolemia 088934134 E78.01 Will reassess and discuss mgmt based on CVD risk score. Gastroesop hageal reflux disease 685127168 K21.9 Well controlled on H2B without warning signs. Will continue current regimen. Left bundl e branch block 30099057 I44.7 This and secondary cardiomyop athy are being followed by cardiology . Requires a tetanus booster 740142822 Z23 Vertigo 498435283 R42 Sounds like BPPV vs labyrinthi tis. Call if persistent /worse. Cardiomyopathy 68266947 I42.9 Asymptomat ic. Has yearly echo and cardiology f/u scheduled. [id number] Og Munoz MD Telehealt [facility] [address] [place] [address] 04/20/2020 08:01:02 04/20/2020 12:04:31 Exposure to viral disease 7915047192 56218 Z03.818 [id number] Lopez Arce MD Main Office [address] [place] [address] 06/13/2020 15:21:48 06/13/2020 16:23:36 Essential hypertension 21083771 I10 Fair control, continue current regimen. If >130/90 at f/u will increase lisinopril . Needs infl uenza immunization 157427342 Z23 Pure hypercholesterolemia 142125473 E78.01 Will continue TLC based on CVD risk score. [id number] Meaghan Alcantar Main Office [address] [place] [address] 10/22/2020 15:02:01 10/23/2020 11:38:19 Essential hypertension 65778394 I10 Fair control, will increase HCTZ Cough 93386932 R05 Sounds to be sinus related, possibly from ACEI. Rule out COVID. Resume allergy meds, and monitor. Exposure t o viral disease 8047932212 70209 Z03.818 [id number] Lopez Arce MD Main Office [address] [place] [address] 12/23/2020 14:55:21 12/23/2020 16:19:17 Adult health examination 368426274 Z00.00 Immunizati on status updated, Shingrix advised via local pharmacy. Will screen based on risk factors. Regular dental and ophtho care advised as well as seat belt and sunscreen use. Breast cancer scre cervical and colon cancer screening overdue this year. Advance directives discussed. Varicella vaccination 68 388147 Z23 Anxiety state 645899169 F41.1 Essential hypertension 82512328 I10 Pure hypercholesterolemia 575993187 E78.01 Will continue TLC based on CVD risk score. Screening for malignant neoplasm of colon 303830227 Z12.11 Due in the fall for routine/lo w risk screening. Considerin g stool testing in lieu of colonoscop y this year. Screening for malignant neoplasm of breast 090619451 Z12.39 Orders provided. Pt to arrage kandice. Screening for malignant neoplasm of cervix 405684018 Z12.4 Updated today. If testing is negative will defer for 5 yrs. Generalize d anxiety disorder 16180607 F41.1 Using anxiolytic infrequent ly. Mostly for travel PRN. Rx refilled, will monitor use. Pain in toe 024896662 M7 9.674 suspect this is related to bunion/art hritic changes. Try toe spacer Sampling o f vagina for Papanicolaou smear 545048973 Z01.419 Body mass index 30+ - obesity 907038148 E66.9 Z68.31 [id number] Stephenie Luz MD Main Office 3640 [facility] [address] [place] [address] 05/06/2021 14:09:56 05/06/2021 15:42:23 Essential hypertension 79582076 I10 BP within JNC 8 guideline except for 1 reading thus will hold adjustment to medicatonE KG similar to 2019.Ortho static noted - advised hydrationd izziness is not continuous nor triggered this could be 2/2 to acute stress vs sinusitis. Will have pt come in, in 1-2 weeks for BP and orthostati c f/u. Acute sinusitis 45838711 J01.90 Symptoms has been going on for > 7 days thus will start abx.Patien t tells me she cannot take big tablets does not want augmentin thus will to levaquin instead.Ad vised to use flonase and for compliance will try sensimist formula.AM saline rinse.Tyle nol for headaches. Sick note provided.W ill f/u in 1-2 weeks Seasonal allergy 8434417 04 J30.2 Advised dialy flonase and can bridge with loratidine prn.Will add azelastine eye drop for epiphora. [id number] Tyra Howard MA Main Office [address] [place] [address] 05/13/2021 10:26:34 05/13/2021 11:13:59 Visual disturbance 12513951 H53.9 Schedule STAT ophthalmol ogy. [id number] Vaishali Chapa PA-C Main Office [address] [place] [address] [place] [address] 05/27/2021 11:19:58 05/27/2021 12:20:07 Essential hypertension 30140774 I10 Stable HTN on meds. Labs stable in [facility]. [id number] Lopez Arce MD Main Office [address] [address] [place] [address] 06/30/2021 10:43:43 06/30/2021 11:53:22 Essential hypertension 64693788 I10 Well controlled , continue current regimen. Needs infl uenza immunization 096648155 Z23 Pure hypercholesterolemia 903928585 E78.01 Will continue TLC based on CVD risk score. Varicella vaccination 68 369705 Z23 [id number] Lopez Arce MD Main Office [facility] [address] [place] [address] 11/20/2021 12:46:45 11/20/2021 13:46:48 Essential hypertension 95152580 I10 Fair control in context of significan t life stressors. Will monitor on current regimen. Generalize d anxiety disorder 52486309 F41.1 Symptoms are limiting, mostly at work. Will provide note for respite while she establishe s with therapist. Consider SSRI trial if anxiolytic use is frequent or if symptoms otherwise persist/wo rsen. Adjustment disorder with mixed emotional features 34013761 F43.23 Pt counseled on resources for therapy. [id number] Lopez Arce MD Main Office [address] [facility] [address] [place] [address] 12/09/2021 10:36:56 12/09/2021 11:26:14 Anxiety state 510188394 F41.1 Disability paperwork reviewed/c ompleted. RTW 02/16 for now. Holding on any additional medication at this time. Essential hypertension 36476985 I10 Well controlled on current regimen. Sensitive to mood issues. Will monitor on current regimen. Adjustment disorder with mixed emotional features 37079386 F43.23 Await to assess response to therapy. [id number] Lopez Arce MD Main Office [address] [facility] 207 [place] [address] 12/25/2021 09:29:38 12/25/2021 10:38:25 Adult health examination 479998895 Z00.00 Immunizati on status updated, Shingrix advised via local pharmacy. Will screen based on risk factors. Regular dental and ophtho care advised as well as seat belt and sunscreen use. Breast cancer scre cervical and colon cancer screening overdue this year. Advance directives discussed. Varicella vaccination 68 706107 Z23 Essential hypertension 83819585 I10 Well controlled on current regimen. Sensitive to mood issues. Will monitor on current regimen. Pure hypercholesterolemia 649926387 E78.01 Will continue TLC based on CVD risk score. Screening for malignant neoplasm of colon 602709713 Z12.11 Due in the fall for routine/lo w risk screening. Considerin g stool testing in lieu of colonoscop y this year. Screening for malignant neoplasm of breast 597230271 Z12.39 Orders provided. Pt to arrage kandice. Screening for malignant neoplasm of cervix 783389667 Z12.4 Updated and negative last year. Due 2025 unless symptoms arise. Body mass index 25-29 - overweight 899289830 E66.3 Z68.29 Anxiety state 421421807 F41.1 Disability paperwork reviewed/c ompleted. RTW 02/16 for now. Holding on any additional medication at this time. [id number] Lopez Arce MD Main Office [address] [facility] [address] [place] [address] 02/10/2022 10:00:13 02/10/2022 11:02:20 Anxiety state 260228069 F41.1 Disability paperwork reviewed/c ompleted. Plan to RTW in 2 months for now. Holding on any additional medication at this time. Essential hypertension 02223986 I10 Well controlled on current regimen. Sensitive to mood issues. Will monitor on current regimen. Abnormal feces 781894392 R19.[address] Packer on 02/05, note reviewed, being scheduled for colonoscop y. Adjustment disorder with mixed emotional features 27756848 F43.23 Await to assess response to therapy. [id number] Lopez Arce MD Main Office [address] [address] 03/03/2022 11:25:07 03/03/2022 12:24:00 Essential hypertension 25092085 I10 Well controlled on current regimen. Sensitive to mood issues. Will monitor on current regimen. Anxiety state 311302301 F41.1 New disability paperwork reviewed/c ompleted (20min). Difficult to assess what sort of work environmen t she will be able to return to until she is able establish with a therapist and determine coping needs. Contact info for 2 local therapists provided (Jenifer Dickey/Veronica Owens). Plan to RTW in 1-2 months for now, depending on progress. Pt declines medication at this time which I agree with as her symptoms only seem to be an issue in her work environmen t. Holding on any medication at this time. Adjustment disorder with mixed emotional features 24520510 F43.23 Await to assess response to therapy. [id number] Lopez Arce MD Main Office [address] [address] 04/14/2022 10:43:26 04/14/2022 11:39:25 Anxiety state 911662639 F41.1 New disability paperwork reviewed/c ompleted (20min). Difficult to assess what sort of work environmen t she will be able to return to until she is able establish with a therapist and determine coping needs. Plan to RTW in 3 months for now, depending on progress. Pt declines medication at this time which I agree with as her symptoms only seem to be an issue in her work environmen t. Holding on any medication at this time. [id number] Lopez Arce MD [address] [place] [address] 05/15/2022 09:43:39 05/15/2022 12:49:58 Adjustment disorder with mixed emotional features 18395791 F43.23 Await to assess response to therapy. Anxiety state 328446534 F41.1 Discussed medication options which I think may be warranted if she is unable to edna her coping skills prior to returning to work. Based on current anxiolytic use I think it is reasonable to defer SSRI trial pending the response she receives from psychother apy. She will call prior to her next appt if it seems like that option may be necessary. [id number] Lopez Arce MD Main Office [address] [place] [address] 06/18/2022 12:53:50 06/18/2022 14:02:20 Anxiety state 935665782 F41.1 Discussed medication options which I think may be warranted if she is unable to edna her coping skills prior to returning to work. Based on current anxiolytic use I think it is reasonable to defer SSRI trial pending the response she receives from psychother apy. She will call prior to her next appt if it seems like that option may be necessary. Adjustment disorder with mixed emotional features 64333949 F43.23 Continues to be unable to return to work. Willing to try remote if an option. Paperwork completed >30 min spent with patient and completing disability papers. [id number] Lopez Arce MD Main Office [address] [place] [address] 07/14/2022 09:57:55 07/14/2022 10:58:08 Anxiety state 094018882 F41.1 Discussed medication options which I think may be warranted if she is unable to edna her coping skills prior to returning to work. Based on current anxiolytic use I think it is reasonable to defer SSRI trial pending the response she receives from psychother apy. She will call prior to her next appt if it seems like that option may be necessary. Needs infl uenza immunization 473275151 Z23 Essential hypertension 02942679 I10 Well controlled on current regimen. Sensitive to mood issues. Will monitor on current regimen. Due for follow up labs in [id number] Lopez Arce MD [facility] [address] [address] [place] [address] 08/28/2022 08:12:05 08/28/2022 11:08:38 Anxiety state 895370611 F41.1 Pt is aware of medication options and is making some progress with psychother apy but not to the extent that she can return to work. Will continue psychother apy and see if coping skills improve while waiting to see if employer is willing to make remote work accomodati ons. She will call prior to her next appt if it seems like that option may be necessary. Adjustment disorder with mixed emotional features 26940822 F43.23 Allergic conjunctivitis of bilateral eyes 4737130975 47517 H10.13 Has formal eye exam scheduled with [facility] in the next 2 weeks. See if allergy drops and lubricant helps. May need further evaluation depending on symptom response. [id number] Keren Alejandra garzon [facility] h [address] [place] [address] 09/02/2022 10:12:54 09/04/2022 11:36:29 Acute sinusitis 99125273 J01.90 treat as below intolerant to augmentin, 3 weeks of symptoms, sounds like bacterial sinusitis, sinus irrigation , flonase and nasal saline 236150 TOD Tee [facility] h [address] [address] [place] [address] 09/30/2022 09:46:15 09/30/2022 10:37:36 Benign paroxysmal positional vertigo 415348135 H81.10 Dysfunctio n of eustachian tube 80518758 H69.93 [id number] Lopez Arce MD [facility] h [address] [address] [place] [address] 10/30/2022 08:34:36 10/30/2022 09:41:00 Adjustment disorder with mixed emotional features 84522722 F43.23 Anxiety state 836908783 F41.1 Pt is aware of medication options and is making some progress with psychother apy but not to the extent that she can return to work. Symptoms remain limiting almost strictly around her work environmen t. Will continue psychother apy and see if coping skills improve while waiting to see if employer is willing to make remote work accomodati ons. She will call prior to her next appt if it seems like that option may be necessary. Needs OOWN through 12/31/22 attmegha Baer. Acute sinusitis 70461271 J01.90 Having recurrent symptoms since August. Resuming her allergy meds. Advised to schedule office assessment if symptoms persist/wo rsen. [id number] Lopez Arce MD Main Office [address] [facility] 207 [facility] [place] [place] [address] 11/03/2022 14:54:01 11/03/2022 15:32:38 Chronic recurrent sinusitis 413888578 J32.9 Possibly related to allergies vs partially treated bacterial process. Will try broader spectrum abx and resume allergy meds. See if prednisone taper helps decrease swelling/f acilitates drainage. INB/worse may need extended course of abx and potentiall y imaging. [id number] Lopez Arce MD Telehealt h 3640 [facility] [address] [place] [address] 12/25/2022 08:33:41 12/25/2022 09:52:07 Anxiety state 277653337 F41.1 Pt is aware of medication options and is making some progress with psychother apy but not to the extent that she can return to work. Symptoms remain limiting almost strictly around her work environmen t. Will continue psychother apy and see if coping skills improve while waiting to see if employer is willing to make remote work accomodati ons. She will call prior to her next appt if it seems like that option may be necessary. Needs OOWN through 02/26/23 attmegha Baer. Pure hypercholesterolemia 121717494 E78.01 Will continue TLC based on CVD risk score. Albuminuria 506202898 R8 0.9 Trace this time with nl CR. Will monitor with BP, no need for renal involvemen t currently. [id number] Lopez Arce MD Main Office [address] [facility] [address] [place] [address] 12/28/2022 08:27:02 12/28/2022 09:23:49 Adult health examination 452930905 Z00.00 Immunizati on status updated, Shingrix advised via local pharmacy. Will screen based on risk factors. Regular dental and ophtho care advised as well as seat belt and sunscreen use. Breast cancer scre cervical and colon cancer screening overdue this year. Advance directives discussed. Body mass index 25-29 - overweight 793128294 E66.3 Z68.29 Anxiety state 987804196 F41.1 Pt is aware of medication options and is making some progress with psychother apy but not to the extent that she can return to work. Symptoms remain limiting almost strictly around her work environmen t. Will continue psychother apy and see if coping skills improve while waiting to see if employer is willing to make remote work accomodati ons. She will call prior to her next appt if it seems like that option may be necessary. Needs OOWN through 02/26/23 attn Buffy. Essential hypertension 31986621 I10 Well controlled on current regimen. Sensitive to mood issues. Will monitor on current regimen. Due for follow up labs in Oct. Gastroesop hageal reflux disease 292738644 K21.9 Well controlled on H2B without warning signs. Will continue current regimen. Pure hypercholesterolemia 812353361 E78.01 Will continue TLC based on current CVD risk score. Screening for malignant neoplasm of breast 745824817 Z12.39 Orders provided. Pt to arrage kandice. Varicella vaccination 68 224883 Z23 Low back pain 957259571 M54.50 Suspect SIJ mediated pain. If persistent /worse consider PT referral. [id number] Lopez Arce MD Main Office [address] [address] 06/29/2023 09:07:57 06/29/2023 10:06:05 Anxiety state 927711003 F41.1 Well controlled since retiring. Will monitor. Essential hypertension 17751267 I10 Well controlled on current regimen. Sensitive to mood issues. Will monitor on current regimen. Due for follow up labs in Oct. Influenza vaccine needed 4752216249 106 Z23 Administra tion of pneumococcal vaccine 28864262 Z23 Pure hypercholesterolemia 924396997 E78.01 Will continue TLC based on current CVD risk score. History of Intestinal infection caused by Clostridioides difficile 7234927131 50494 Z86.19 Will request records from GI/ [id number] Lopez Arce MD Main Office [address] [address] 12/30/2023 09:26:33 12/30/2023 10:37:37 Adult health examination 776101542 Z00.00 Immunizati on status updated, Shingrix advised via local pharmacy. Will screen based on risk factors. Regular dental and ophtho care advised as well as seat belt and sunscreen use. Breast cancer scre cervical and colon cancer screening overdue this year. Advance directives discussed. Infection of tooth 64050 8007 K04.7 Starting cephalexin via dentist, being scheduled with surgeon. Body mass index 25-29 - overweight 469411666 E66.3 Z68.29 Bone density finding 385 921451 M85.89 Screening for malignant neoplasm of breast 249582612 Z12.39 Overdue, understand s/accepts potential consequenc es. Orders provided. Pt to arrage kandice. Pure hypercholesterolemia 906364558 E78.01 Will continue TLC based on current CVD risk score. Polyp of colon 48289811 K63.5 Essential hypertension 24696287 I10 Well controlled on current regimen. Sensitive to mood issues. Will monitor on current regimen. Screening for malignant neoplasm of cervix 539959551 Z12.4 Updated and negative last year. Due 2025 unless symptoms arise. [id number] Lopez Arce MD Main Office [address] [place] [address] 06/12/2024 09:56:34 06/12/2024 10:59:01 Essential hypertension 19342440 I10 Well controlled on current regimen. Will monitor on current regimen. Pure hypercholesterolemia 737681443 E78.01 Statin therapy recommende d based on 8% CVD risk, pathophysi ology of atheroscle rosis discussed at length. She would like to contemplat e starting a statin. Influenza vaccination declined 553252037 Z28.21 Low back pain 726257923 M54.50 Suspect SIJ mediated pain. If persistent /worse consider PT referral. Pain of ri ght knee joint 6711280212 08577 M25.561 Likely OA, will start with imaging and APAP. Consider ti=opical NSAID/inte rmittent low dose NSAID if persistent /worse. [id number] FELECIA BARNEY Main Office [address]40 [facility] [address] [place] [address] 08/09/2024 10:47:54 08/09/2024 11:23:39 Cystocele 434668119 N81.10 -years of urinary symptoms>f requent urination, difficulty emptying bladder-pt felt a bulge in her vaginal canal while in the shower-on PE; bulging tissue through vaginal opening appreciate d-risk factors include; multiple childbirth , postmenopa use, and hx of constipati on-will refer to PT for pelvic floor exercises and urology for urinary symptoms [id number] Lopez Arce MD Main Office [address] [facility] [address] [place] [address] 01/01/2025 09:29:51 01/01/2025 10:16:21 Adult health examination [id number] Z00.00 Immunizati on status updated, Shingrix advised via local pharmacy. Will screen based on risk factors. Regular dental and ophtho care advised as well as seat belt and sunscreen use. Breast cancer scre cervical and colon cancer screening overdue this year. Advance directives discussed. Bone density finding [id number] M85.89 Due for routine screening. Body mass index 25-29 - overweight [id number] E66.3 Z68.29 Screening for malignant neoplasm of breast [id number] Z12.39 Overdue, understand s/accepts potential consequenc es. Orders provided. Pt to arrage kandice. Pure hypercholesterolemia [id number] E78.01 Will continue TLC based on current CVD risk score. Polyp of colon [id number] K63.5 Asymptomat ic and colon done in 2021. Following with GI regularly. Essential hypertension [id number] I10 Well controlled on current regimen. Sensitive to mood issues. Will monitor on current regimen. Screening for malignant neoplasm of cervix [id number] Z12.4 Updated and negative last year. Due 2025 unless symptoms arise. Gastroesop hageal reflux disease [id number] K21.9 Well controlled back on PPI without warning signs. Will continue current regimen. Irritable bowel syndrome 04000701 K58.2 Chronic issue, working with GI Health Concerns Section Related Observation LastModified by Organization Detai ls LastModified Time None Recorded Concern Status LastModified by Organization Details LastModified Time None Recorded Advance Directives Directive Y: HCP/ -Jovanny Payers Encounter Date Sequence Insurance Name Policy Number Policy Ortiz Covered Member ID Ortiz Member ID Guarantor Name 06/29/2023 2 [place] [id number] Renata A Lubold [id number] Renata A Lubold 06/29/2023 1 [place] Renata A Lubold [id number] Renata A Lubold 12/30/2023 2 [place] [id number] Renata A Lubold [id number] Renata A Lubold 12/30/2023 1 [place] Renata A Lubold [id number] Renata A Lubold 06/12/2024 2 [place] [id number] Renata A Lubold [id number] Renata A Lubold 06/12/2024 1 [place] Renata A Lubold [id number] 2 Renata A Lubold 08/09/2024 2 [place] [id number] Renata A Lubold [id number] Renata A Lubold 08/09/2024 1 [place] Renata A Lubold [id number] 2 Renata A Lubold 01/01/2025 2 [place] [id number] Renata A Lubold [id number] Renata A Lubold 01/01/2025 1 [place] Renata A Lubold [id number] 2 Renata A Lubold Notes Date Note Type Note Provider Name and Address Organization Details Recorded Time 023 text/ht ml Anxiety/DepressionReported bypatient.Quality:symptoms improved Severity:denies suicidal ideations; able to maintain relationships;interference with sleep;interference with work Duration:symptoms lasting over 2 weeksNotes:Was under extreme amount of stress from work. Being asked to do more in a relatively hostile environment. Has been OOW since 11/20/21. Doing better but still symptomatic with limiting symptoms. Worrying about having to go back. Has not been able to start therapy yet, still on wait list.Hypertension F/UReported bypatient.Associated Symptoms:no dizziness; no chest pain; no shortness of breath; no palpitations; no edema; no calf pain with exertion Lifestyle:regular exercise; limiting/avoiding salt Medications:taking medications as directed; no side effects from medicationNotes:Tolerating ACEI/diuretic well. BP has been much better out of work. Had positive cologuard testing, completely asymptomatic with negative colonoscopy in 2009. Had colonoscopy and polyp removed, no pathology reports or follow up notes received. Pt states that she was treated for cdiff in may as well. Lopez Arce MD [address], [address], [facility] 06/29/2023 09:56:40 024 text/ht ml Medicare Annual Wellness VisitReported bypatient.Diet and Nutrition:healthy diet Fracture Risk:no history of fractures; no recent explained fracture; no sudden unexplained fractures; no previous musculoskeletal injuries Physical Activity:exercises on a regular basis; good physical condition;decreased physical activity Depression Risk:never feels sad, empty, or tearful; no loss of interest in activities; no significant changes in weight; no sleep disturbances or insomnia; no history of depression; no history of mood disorders Orientation:no disorientation to time; no disorientation to date; no disorientation to place Concentration and Memory:no decreased concentrating ability; no memory lapses or loss; does not forget words Speech/Motor difficulties:no speech difficulties; no difficulty expressing formulated concepts; no difficulty with fine manipulative tasks; no difficulty writing/copying; no slowed reaction time; does not knock things over when trying to pick them up Hearing:no loss of hearing Vision:no vision problems Activities of Daily Living:able to bathe with limited or no assistance; able to contol urination and bowels; able to dress with limited or no assistance; able to feed self with limited or no assistance; able to get out of chair or bed with limited or no assistance; able to groom with limited or no assistance; able to toilet with limited or no assistance Instrumental Activities of Daily Living:able to do house work with limited or no assistance; able to grocery shop with limited or no assistance; able to manage medications with limited or no assistance; able to manage money with limited or no assistance; able to prepare meals with limited or no assistance; able to use the phone with limited or no assistance Falls Risk Assessment:no frequent falls while walking; no fall in the past year; no fall since last visit;dizziness/vertigo Home Safety:no unsafe shweta hazzards; working smoke/CO detectors; use of seatbelts; has hand bars in the bathroom/shower Lopez Arce MD [address], [address], [facility] 12/30/2023 10:33:37 024 text/ht ml Anxiety/DepressionReported bypatient.Quality:symptoms improved Severity:denies suicidal ideations; able to maintain relationships; does not interfere with activities of daily living Duration:symptoms lasting over 2 weeks Context:no major life stressorsHyperlipidemiaReported bypatient.Type of hyperlipidemia:hypercholesterolemi a Duration:chronic Control:worsening;not at goal Current Therapy:last cholesterol level: (237); last LDL level: (155); last triglyceride level: (79); last HDL level: (68) Compliance:compliant; compliant with diet; exercises Complications:no coronary artery disease; no peripheral artery disease; no cardiovascular disease Risk Factors:positive family history of premature arteriosclerotic cardiovascular disease;hypertension;obesityNotes: CVD risk 8.1%Hypertension F/UReported bypatient.Associated Symptoms:no dizziness; no chest pain; no shortness of breath; no palpitations; no edema; no calf pain with exertion Lifestyle:regular exercise; limiting/avoiding salt Medications:taking medications as directed; no side effects from medicationNotes:Tolerating ACEI/diuretic well. BP has been much better since halfway. Lopez Arce MD [address] [address], [place], [address], [facility] 06/29/2024 07:32:30 024 text/ht froilan Yanez is a 64yr old F who presents for lump on inside of vaginal canal. Reports she was in the shower when she noticed feeling the lump. Hx of constipation. Reports of having issues with poor bladder control for years. Denies of any abnormal vaginal bleeding, discharge, pruritis, or known trauma. FELECIA BARNEY [address], [address], [facility] 08/09/2024 11:26:11 025 text/ht ml Medicare Annual Wellness VisitReported bypatient.Diet and Nutrition:healthy diet Fracture Risk:no history of fractures; no recent explained fracture; no sudden unexplained fractures; no previous musculoskeletal injuries Physical Activity:exercises on a regular basis; good physical condition;decreased physical activity Depression Risk:never feels sad, empty, or tearful; no loss of interest in activities; no significant changes in weight; no sleep disturbances or insomnia; no history of depression; no history of mood disorders Orientation:no disorientation to time; no disorientation to date; no disorientation to place Concentration and Memory:no decreased concentrating ability; no memory lapses or loss; does not forget words Speech/Motor difficulties:no speech difficulties; no difficulty expressing formulated concepts; no difficulty with fine manipulative tasks; no difficulty writing/copying; no slowed reaction time; does not knock things over when trying to pick them up Hearing:no loss of hearing Vision:no vision problems Activities of Daily Living:able to bathe with limited or no assistance; able to contol urination and bowels; able to dress with limited or no assistance; able to feed self with limited or no assistance; able to get out of chair or bed with limited or no assistance; able to groom with limited or no assistance; able to toilet with limited or no assistance Instrumental Activities of Daily Living:able to do house work with limited or no assistance; able to grocery shop with limited or no assistance; able to manage medications with limited or no assistance; able to manage money with limited or no assistance; able to prepare meals with limited or no assistance; able to use the phone with limited or no assistance Falls Risk Assessment:no frequent falls while walking; no fall in the past year; no fall since last visit;dizziness/vertigo Home Safety:no unsafe shweta hazzards; no unsafe stairs; working smoke/CO detectors; use of seatbelts; has hand bars in the bathroom/shower Lopez Arce MD [address] [address], [place], [address], [facility] 01/01/2025 10:23:09 OBGyn Episode No OBEpisode recorded.
--- OUTSIDE RECORDS SUMMARY | 2025-01-12 15:36 | XMS_ITS ---
Author Organization [facility] Address [address] [place] [phone] Care Team Providers Care Supervisor Roving Department Name Role Phone Lizeth GARCIA, Lopez Primary Care Provider Unavail able Chris Galdamez Jr REASON FOR VISIT CANCELLED DECEMBER 20 Encounters Encounter Location Date Provider Diagnosis [facility] [address] [place] [address] 12/15/2024 Chris Galdamez Jr Plan Of Treatment No Information Progress Notes * LYNDA LEONARDO ADOB: [birth year] (64 yo F)Acc No.[id number]:12/15/2024 Patient:?LEONARDO HOWELL :1960???Age:64 Y???Sex:Female Address:[address] [place] [address] * true * Date:? Generated for Roberti fareed/Ian/eTransmitting on:?01/12/2025 03:36 PM EDT
--- OUTSIDE RECORDS SUMMARY | 2025-01-12 15:36 | XMS_ITS ---
Author Organization [facility] Address [address] [place] [address] Care Team Providers Care Check Airman Name Role Phone Lizeth GARCIA, Lopez Primary Care Provider Unavail Chris Austin Jr [phone] REASON FOR VISIT Patient presents today for diarrhea. Encounters Encounter Location Date Provider Diagnosis [facility] [address] [facility] [address] [place] [address] 12/20/2024 Chris Galdamez Jr Plan Of Treatment No Information Progress Notes * LEONARDO HOWELL ADOB: [birth year] (64 yo F)Acc No.[id number]:12/20/2024 Progress Notes Patient:?LEONARDO HOWELL Provider:?Chris Galdamez MD :1960???Age:64 Y???Sex:Female D ate:12/20/2024 Address:[address] [place], [place] [id number] Pcp:Lopez Stanley MD Subjective: * Chief Complaints: * ???1. Patient presents today for diarrhea. . * Medical History:? Objective: * Vitals:? Assessment: Plan: * Treatment: * * The named appointment provid er may or may not be the originator of this progress note, and it is not deemed complete until electronically signed by the appointment provider. Sign off status: Pending * Provider:?Chris Galdamez MD Date:?0 12/20/2024 Generated for Printi fareed/Ian/eTransmitting on:?01/12/2025 03:35 PM EDT
[2025-01-12 17:06] LABS: Leukocytes Stool Qualitative NEGATIVE (NEGATIVE)
[2025-01-13 09:17] LABS: Adenovirus F 40/41 Not Detected (Not Detect.); Astrovirus Not Detected (Not Detect.); Campylobacter Not Detected (Not Detect.); Cryptosporidium Not Detected (Not Detect.); Cyclospora cayetanensis Not Detected (Not Detect.); E. coli EAEC Not Detected (Not Detect.); E. coli EPEC Not Detected (Not Detect.); E. coli ETEC Not Detected (Not Detect.); E. coli STEC Not Detected (Not Detect.); Entamoeba histolytica Not Detected (Not Detect.); Giardia lamblia Not Detected (Not Detect.); Plesiomonas shigelloides Not Detected (Not Detect.); Rotavirus A Not Detected (Not Detect.); Salmonella Not Detected (Not Detect.); Sapovirus Not Detected (Not Detect.); Shigella sp./EIEC Not Detected (Not Detect.); Vibrio Not Detected (Not Detect.); Vibrio Cholerae Not Detected (Not Detect.); Yersinia enterocolitica Not Detected (Not Detect.)
[2025-01-15 13:04] LABS: Norovirus GI/GII Detected (Not Detect.)
== END 2025-01-12 15:33 | disposition home or self-care (01) ==
LOC: HO.LNP 15:32
PROVIDERS: Visit Provider Internal Medicine Gastroenterology
DX: R19.5 Other fecal abnormalities (principal)
CPT/HCPCS: 87177; 87209; 87507; 89055